=== PATIENT | male | born 1955 | race Caucasian/White ===

== ENCOUNTER 2023-08-24 08:29 | Inpatient (IN) | payer OTHER ==
[~2023-08-24] VITALS: Ht 177.8 cm; Wt 80.6 kg
[2023-08-24 09:20] VITALS: PULSE 92; RESP 13; O2SAT 92
[2023-08-24 09:28] LABS: Hemoglobin 7.6 g/dL (13.5-17.5); Mean Corpuscular Hemoglobin 42.9 pg (28.0-32.0); Mean Corpuscular Hgb Conc. 33.3 g/dL (32.0-36.0); Red Blood Cells 1.78 10^6/uL (4.5-5.90); Red Cell Distribution Width 18.7 % (11.8-14.3); White Blood Cell 10.4 10^3/uL (4.4-10.8)
[2023-08-24 09:29] LABS: Basophils % (manual) 0 (0.0-2.0); Blast Cells 0; Metamyelocytes % 0; Myelocytes % 0; Promyelocytes % 0; Reactive Lymphocytes 0
[2023-08-24 09:38] LABS: INR 1.9 (0.9-1.15); Partial Thromboplastin Time 30.7 SEC (24.5-34.5); Prothrombin Time 19.1 sec (9.3-11.8)
[2023-08-24 09:42] LABS: Albumin 2.8 g/dL (3.2-4.8); Alkaline Phosphatase 119 U/L (46-116); Anion Gap 12 (5-15); Blood Alcohol < 3.0 mg/dL (<10); Calcium 8.5 mg/dL (8.5-10.1); Carbon Dioxide 25 mmol/L (20-30); Chloride 106 mmol/L (98-107); Glucose 134 mg/dL (74-106); Potassium 3.4 mmol/L (3.5-5.1); Sodium 143 mmol/L (136-145)
[2023-08-24 10:12] LABS: Band Neutrophils % (manual) 2; Eosinophils % (manual) 1 (0-7); Lymphocytes % (manual) 9 (10.0-50.0); Monocytes % (manual) 5 (0-12)
[2023-08-24 10:13] LABS: Platelet Estimate Decreased
[2023-08-24 10:14] LABS: Alanine Aminotransferase 27 U/L (7-40); Aspartate Aminotransferase 44 U/L (13-40); BUN/Creatinine Ratio 36.6 (10.0-20.0); Blood Urea Nitrogen 49 mg/dL (9-23); Macrocytosis Marked; Total Protein 6.3 g/dL (5.7-8.2)
[2023-08-24 10:17] LABS: Lactic Acid w/Reflex 2.4 mmol/L (0.4-2.0)
[2023-08-24 10:59] LABS: Bilirubin, Total 25.7 mg/dL (0.2-1.0)
[2023-08-24] MEDS: SODIUM CHLORIDE 0.9% 1,000 ML IV ONE (11:02)
[2023-08-24] MEDS: PANTOPRAZOLE 40 MG/10 ML VIAL INJ IV ONE (11:02)
[2023-08-24] MEDS: LORazepam 2MG/ML-1ML VIAL IV ONE ×2 (11:03→13:45)
[2023-08-24 13:16] LABS: Urine Bacteria FEW /hpf (None Seen); Urine Blood 1+ /uL (Negative); Urine Clarity Turbid (Clear); Urine Color Dark-Yellow (Yellow); Urine Mucus FEW (None Seen); Urine Protein, UAD Negative (Negative); Urine Specific Gravity 1.017 (1.001-1.035); Urine Urobilinogen OVER mg/dL (Negative); Urine WBC 6 /hpf (0 - 3); Urine pH 5.5 (5.0-9.0)
[2023-08-24 13:25] LABS: Amphetamine Screen, Urine Neg (NEGATIVE); Barbiturate Scree,Urine Neg (NEGATIVE); Benzodiazephine Screen, Urine Neg (NEGATIVE); Cocaine Screen, Urine Neg (NEGATIVE); Opiate Scree,Urine Pos (NEGATIVE)
[2023-08-24 13:26] LABS: Cannabinoid Screen, Urine Pos (NEGATIVE); Phencyclidine Screen, Urine Neg (NEGATIVE)
[2023-08-24] MEDS ORDERED: DOCUSATE SOD 100 MG CAP PO PRN (15:30)
[2023-08-24] MEDS ORDERED: MORPHINE SULFATE INJ 2 MG/ml SYRG IV PRN (15:30)
[2023-08-24] MEDS ORDERED: NITROGLYCERIN 0.4 MG SL TAB SL PRN (15:30)
[2023-08-24] MEDS ORDERED: ACETAMINOPHEN 325 MG TAB PO PRN (15:30)
[2023-08-24] MEDS: SODIUM CHLORIDE 0.9% 1,000 ML IV SCH (15:30)
[2023-08-24] MEDS ORDERED: ONDANSETRON HCL 4 MG/2 ML VIAL IV PRN (15:30)
[2023-08-24] MEDS: cefTRIAXone 1GM/50ML D5W 50 ML IV ONE (16:14)
[2023-08-24] MEDS: AZITHROMYCIN 500MG/ 250ML 250 ML IV ONE (18:18)
[2023-08-24] MEDS ORDERED: LORazepam 2MG/ML-1ML VIAL IV PRN (20:00)
[2023-08-24] MEDS: LACTULOSE 20Gm/30ML SOLN PO ONE (20:35)
[2023-08-24 20:36] VITALS: BP 118/37; PULSE 95; RESP 20; TEMP 97.9; O2SAT 98
[2023-08-24] MEDS: LORazepam 2MG/ML-1ML VIAL IV PRN (20:41)
[2023-08-24] MEDS ORDERED: DEXTROSE (50%) 50ML SYRG IV PRN (21:00)
[2023-08-24] MEDS: FOLIC ACID 1 MG, MULTIPLE VITAMIN 10 ML, MAGNESIUM SULF SDV 50% 8 MEQ, THIAMINE INJ 100... INJ SCH (21:25)
[2023-08-24 22:05] VITALS: O2SAT 92
[2023-08-24] MEDS: PANTOPRAZOLE 40 MG/10 ML VIAL INJ IV SCH (23:20)
[2023-08-25] VITALS (22 sets, daily range): BP systolic 90–164; BP diastolic 42–88; PULSE 59–104; RESP 12–35; TEMP 96.3–97.7; O2SAT 92–100
[2023-08-25] MEDS: ACCU-CHEK COMFORT CURVE STRIP VI SCH (01:51)
[2023-08-25 04:07] LABS: Hematocrit 20.2 % (41.0-53.0)
[2023-08-25 04:12] LABS: Mean Corpuscular Hemoglobin 43.5 pg (28.0-32.0); Mean Corpuscular Hgb Conc. 33.7 g/dL (32.0-36.0); Mean Corpuscular Volume 129.3 fL (80.0-100.0); Red Blood Cells 1.56 10^6/uL (4.5-5.90); Red Cell Distribution Width 18.4 % (11.8-14.3)
[2023-08-25 04:15] LABS: Hemoglobin 6.8 g/dL (13.5-17.5)
[2023-08-25 04:17] LABS: Basophils % (manual) 0 (0.0-2.0); Blast Cells 0; Eosinophils % (manual) 0 (0-7); Metamyelocytes % 0; Myelocytes % 0; Promyelocytes % 0; Reactive Lymphocytes 0
[2023-08-25 04:27] LABS: Albumin 2.4 g/dL (3.2-4.8); Alkaline Phosphatase 103 U/L (46-116); Anion Gap 12 (5-15); Bilirubin, Total 23.3 mg/dL (0.2-1.0); Calcium 8.5 mg/dL (8.7-10.4); Carbon Dioxide 25 mmol/L (20-30); Chloride 108 mmol/L (98-107); Glucose 171 mg/dL (74-106); Potassium 3.3 mmol/L (3.5-5.1); Sodium 145 mmol/L (136-145)
[2023-08-25 04:30] LABS: Alanine Aminotransferase 23 U/L (7-40); Aspartate Aminotransferase 38 U/L (13-40); BUN/Creatinine Ratio 27.4 (10.0-20.0); Total Protein 6.1 g/dL (5.7-8.2)
[2023-08-25 04:31] LABS: Blood Urea Nitrogen 37 mg/dL (9-23)
[2023-08-25 07:25] LABS: Band Neutrophils % (manual) 1; Lymphocytes % (manual) 1 (10.0-50.0); Monocytes % (manual) 14 (0-12); Platelet Estimate Decreased
[2023-08-25 07:27] LABS: Macrocytosis Moderate
[2023-08-25] MEDS: ETOMIDATE (2MG/ML) 20ML VIAL IV ONE (09:25)
[2023-08-25] MEDS: ROCURONIUM 10MG/ML 10ML VIAL IV ONE (09:25)
[2023-08-25] MEDS: MIDAZOLAM DRIP 50 mg/50mL 50 ML IV SCH (09:26)
[2023-08-25] MEDS: MIDAZOLAM DRIP 50 mg/50mL 50 ML IV ONE (09:27)
[2023-08-25 09:37] LABS: Hepatitis B Surface Antigen Negative (Negative)
[2023-08-25] MEDS: PANTOPRAZOLE 80 MG in SODIUM CHL 0.9% 100 ML IV ONE (09:45)
[2023-08-25] MEDS: methylPREDNISolone SOD SUCC 40 MG/ML VL IV ONE (09:50)
[2023-08-25] MEDS: cefTRIAXone 1GM/50ML D5W 50 ML IV SCH (09:50)
[2023-08-25 09:57] LABS: Hepatitis A Ab IgM Negative
[2023-08-25 09:58] LABS: Hepatitis B Core IgM Negative
[2023-08-25 09:59] LABS: Hepatitis C Antibody Negative (Negative)
[2023-08-25] MEDS ORDERED: LACTULOSE 20Gm/30ML SOLN PO SCH (10:00)
[2023-08-25] MEDS ORDERED: predniSONE 20 MG TAB PO SCH (10:00)
[2023-08-25] MEDS: methylPREDNISolone SOD SUCC 40 MG/ML VL IV SCH (10:00)
[2023-08-25] MEDS: PANTOPRAZOLE 40mg/50ML NS AE 50 ML IV SCH (10:20)
[2023-08-25 10:21] LABS: Base Excess 2.1 mmol/L (-2.0-2.0)
[2023-08-25] MEDS: fentaNYL Drip 2500mCg/250mlNS 250 ML IV ONE (10:59)
[2023-08-25] MEDS: fentaNYL Drip 2500mCg/250mlNS 250 ML IV SCH (10:59)
[2023-08-25] MEDS: LACTULOSE 10g/15ml SOLN 473ML PR ONE (11:49)
[2023-08-25] MEDS: LACTULOSE 10g/15ml SOLN 473ML PR SCH (12:18)
[2023-08-25] MEDS: NOREPINEPHRINE 8 MG/250ML KIT 250 ML IV SCH (13:01)
[2023-08-25] MEDS: POTASSIUM CHL 20MEQ/100ML 100 ML IV SCH (13:20)
[2023-08-25] MEDS: AZITHROMYCIN 500MG/ 250ML 250 ML IV SCH (14:37)
[2023-08-25] MEDS: SODIUM CHLORIDE 0.9% 1,000 ML IV SCH (16:15)
[2023-08-25] MEDS: OCTREOTIDE ACETATE 500 MCG in SODIUM CHL 0.9% 99 ML IV SCH (16:27)
[2023-08-25] MEDS: PIPERACILLIN-TAZOB 3.375GM 100 ML IV ONE (18:41)
[2023-08-25] MEDS: PIPERACILLIN-TAZOB 3.375GM 100 ML IV SCH (22:19)
[2023-08-26] VITALS (114 sets, daily range): BP systolic 86–115; BP diastolic 36–59; PULSE 49–94; RESP 10–19; TEMP 95.6–98.8; O2SAT 92–100
[2023-08-26 00:20] LABS: Hemoglobin 8.7 g/dL (13.5-17.5)
[2023-08-26 03:54] LABS: Basophils # (auto) 0 10 ^3/uL (0-0.2); Basophils % (auto) 0.1 % (0.0-2.0); Eosinophils # (auto) 0 10 ^3/uL (0-0.8); Eosinophils % (auto) 0.1 % (0.0-7.0); Hemoglobin 7.7 g/dL (13.5-17.5); Lymphocytes # (auto) 0.5 10 ^3/uL (0.4-5.4); Neutrophils # (auto) 9.3 10 ^3/uL (1.6-8.6); Nucleated Red Blood Cells % 0.1 %; White Blood Cell 10.3 10^3/uL (4.4-10.8)
[2023-08-26 03:58] LABS: Hematocrit 23.5 % (41.0-53.0); Lymphocytes % (auto) 4.9 % (10.0-50.0); Mean Corpuscular Hemoglobin 37.3 pg (28.0-32.0); Mean Corpuscular Hgb Conc. 32.8 g/dL (32.0-36.0); Mean Corpuscular Volume 113.6 fL (80.0-100.0); Monocytes # (auto) 0.6 10 ^3/uL (0-1.3); Monocytes % (auto) 5.4 % (0.0-12.0); Neutrophils % (auto) 89.5 % (37.0-80.0); Red Blood Cells 2.07 10^6/uL (4.5-5.90)
[2023-08-26 04:06] LABS: Red Cell Distribution Width 28.9 % (11.8-14.3)
[2023-08-26 04:14] LABS: Albumin 2.2 g/dL (3.2-4.8)
[2023-08-26 04:15] LABS: Bilirubin, Total 20.8 mg/dL (0.2-1.0)
[2023-08-26 04:28] LABS: % Iron Saturation 32.1 % (20-55)
[2023-08-26 04:29] LABS: Alanine Aminotransferase 21 U/L (7-40); Alkaline Phosphatase 97 U/L (46-116); Anion Gap 7 (5-15); Aspartate Aminotransferase 31 U/L (13-40); BUN/Creatinine Ratio 28.3 (10.0-20.0); Blood Urea Nitrogen 39 mg/dL (9-23); Carbon Dioxide 25 mmol/L (20-30); Chloride 110 mmol/L (98-107); Glucose 240 mg/dL (74-106); Magnesium 2.6 mg/dL (1.6-2.6); Potassium 3.7 mmol/L (3.5-5.1); Sodium 142 mmol/L (136-145); Total Protein 5.6 g/dL (5.7-8.2)
[2023-08-26 04:44] LABS: HDL Cholesterol 6 mg/dL (40-59)
[2023-08-26 04:52] LABS: CRP High Sensitivity 3.36 mg/dL (<1.0); Cholesterol 105 mg/dL (< 200); LDL Cholesterol 33 mg/dL (< 100); Triglycerides 75 mg/dL (< 150)
[2023-08-26] MEDS: InsuLIN REG 1unit/0.01ml Soln (100units/ml) SC SCH (05:38)
[2023-08-26 05:48] LABS: Anisocytosis Moderate; Macrocytosis Marked; Platelet Estimate Decreased
[2023-08-26 05:49] LABS: Large Platelets FEW; Polychromasia Slight
[2023-08-26 07:24] LABS: Base Excess 0.4 mmol/L (-2.0-2.0)
[2023-08-26] MEDS: phytonadione 5 MG in SODIUM CHL 0.9% 50 ML IV ONE (13:00)
[2023-08-26] MEDS ORDERED: MEROPENEM 1GM IVPB 50 ML IV ONE ×2 (13:00→14:00)
[2023-08-26] MEDS ORDERED: VANCOMYCIN PER PHARMACY 0 MG IV SCH (13:00)
[2023-08-26] MEDS: MEROPENEM 1GM IVPB 50 ML IV SCH (14:00)
[2023-08-26 15:13] LABS: INR 2.31 (0.9-1.15); Partial Thromboplastin Time 37.5 SEC (24.5-34.5)
[2023-08-26 15:24] LABS: Basophils # (auto) 0 10 ^3/uL (0-0.2); Basophils % (auto) 0.1 % (0.0-2.0); Eosinophils # (auto) 0 10 ^3/uL (0-0.8); Hematocrit 27.4 % (41.0-53.0); Hemoglobin 9.2 g/dL (13.5-17.5); Lymphocytes # (auto) 0.8 10 ^3/uL (0.4-5.4); Lymphocytes % (auto) 6.2 % (10.0-50.0); Mean Corpuscular Hemoglobin 36.8 pg (28.0-32.0); Mean Corpuscular Hgb Conc. 33.4 g/dL (32.0-36.0); Monocytes # (auto) 1.3 10 ^3/uL (0-1.3); Monocytes % (auto) 9.4 % (0.0-12.0); Neutrophils # (auto) 11.4 10 ^3/uL (1.6-8.6); Neutrophils % (auto) 84.3 % (37.0-80.0); Nucleated Red Blood Cells % 0.2 %; Red Blood Cells 2.49 10^6/uL (4.5-5.90); White Blood Cell 13.5 10^3/uL (4.4-10.8)
[2023-08-26 15:36] LABS: Red Cell Distribution Width 28.2 % (11.8-14.3)
[2023-08-26 16:47] LABS: Anisocytosis Moderate; Platelet Estimate Decreased
[2023-08-26 16:48] LABS: Macrocytosis Moderate
[2023-08-26] MEDS: LACTULOSE 20Gm/30ML SOLN PO SCH (18:01)
[2023-08-26] MEDS: rifAXIMin 550 MG TAB NG SCH (21:03)
[2023-08-27] VITALS (108 sets, daily range): BP systolic 100–139; BP diastolic 43–60; PULSE 49–72; RESP 16–18; TEMP 97–98.4; O2SAT 94–100
[2023-08-27 03:31] LABS: Sodium Urine < 10 mmol/L (40-220)
[2023-08-27 03:39] LABS: Creatinine, Urine 98.49 mg/dL (30.0-125.0)
[2023-08-27 04:12] LABS: Basophils # (auto) 0 10 ^3/uL (0-0.2); Basophils % (auto) 0.1 % (0.0-2.0); Eosinophils # (auto) 0 10 ^3/uL (0-0.8); Eosinophils % (auto) 0.1 % (0.0-7.0); Hemoglobin 8.7 g/dL (13.5-17.5); Lymphocytes # (auto) 1.2 10 ^3/uL (0.4-5.4); Lymphocytes % (auto) 7.6 % (10.0-50.0)
[2023-08-27 04:17] LABS: Hematocrit 25.7 % (41.0-53.0); Mean Corpuscular Hemoglobin 37.9 pg (28.0-32.0); Mean Corpuscular Hgb Conc. 33.9 g/dL (32.0-36.0); Mean Corpuscular Volume 111.7 fL (80.0-100.0); Monocytes # (auto) 1.8 10 ^3/uL (0-1.3); Monocytes % (auto) 11.4 % (0.0-12.0); Neutrophils # (auto) 12.9 10 ^3/uL (1.6-8.6); Neutrophils % (auto) 80.8 % (37.0-80.0); Nucleated Red Blood Cells % 0.1 %
[2023-08-27 04:27] LABS: Alanine Aminotransferase 24 U/L (7-40); Albumin 2.2 g/dL (3.2-4.8); Alkaline Phosphatase 104 U/L (46-116); Anion Gap 7 (5-15); Aspartate Aminotransferase 40 U/L (13-40); Bilirubin, Total 19.2 mg/dL (0.2-1.0); Calcium 7.8 mg/dL (8.7-10.4); Carbon Dioxide 25 mmol/L (20-30); Chloride 112 mmol/L (98-107); Glucose 202 mg/dL (74-106); Magnesium 2.7 mg/dL (1.6-2.6); Phosphorus 3.7 mg/dL (2.4-5.1); Potassium 3.5 mmol/L (3.5-5.1); Sodium 144 mmol/L (136-145); Total Protein 5.6 g/dL (5.7-8.2)
[2023-08-27 04:43] LABS: Red Cell Distribution Width 29.1 % (11.8-14.3)
[2023-08-27 04:54] LABS: BUN/Creatinine Ratio 22.6 (10.0-20.0); Blood Urea Nitrogen 37 mg/dL (9-23)
[2023-08-27 05:14] LABS: CRP High Sensitivity 2.52 mg/dL (<1.0)
[2023-08-27 05:55] LABS: Anisocytosis Marked; Platelet Estimate Decreased
[2023-08-27 05:56] LABS: Macrocytosis Marked
[2023-08-27 07:12] LABS: Base Excess -3.1 mmol/L (-2.0-2.0)
[2023-08-27] MEDS: VANCOMYCIN 1GM/200ML 200 ML IV SCH (11:05)
[2023-08-27] MEDS: MIDODRINE HCL 10 MG TAB PO SCH (12:00)
[2023-08-27] MEDS: MIDODRINE HCL 10 MG TAB PO ONE (13:42)
[2023-08-27] MEDS ORDERED: EPINEPHrine HCL 1 MG/10 ML SYRG ONE (15:47)
[2023-08-27] MEDS: DOPamine 1600MCG/ML D5W 250 ML IV SCH (20:34)
[2023-08-27 20:44] LABS: Magnesium 2.6 mg/dL (1.6-2.6)
[2023-08-27] MEDS: ALBUMIN 25% 100 ML IV SCH (20:51)
[2023-08-27] MEDS: POTASSIUM CHL 20MEQ/100ML 100 ML IV SCH (21:01)
[2023-08-27] MEDS: PANTOPRAZOLE 40 MG/10 ML VIAL INJ IV SCH (21:59)
[2023-08-27] MEDS: OCTREOTIDE ACETATE 100 MCG/ML VL SUBCUT SCH (22:10)
[2023-08-28] VITALS (110 sets, daily range): BP systolic 99–141; BP diastolic 45–79; PULSE 53–67; RESP 10–20; TEMP 97.8–99.1; O2SAT 92–100
[2023-08-28 04:16] LABS: Basophils # (auto) 0 10 ^3/uL (0-0.2); Eosinophils # (auto) 0.2 10 ^3/uL (0-0.8); Monocytes # (auto) 1.2 10 ^3/uL (0-1.3); White Blood Cell 10.7 10^3/uL (4.4-10.8)
[2023-08-28 04:17] LABS: Alanine Aminotransferase 22 U/L (7-40); Albumin 2.3 g/dL (3.2-4.8); Alkaline Phosphatase 97 U/L (46-116); Anion Gap 6 (5-15); Aspartate Aminotransferase 30 U/L (13-40); Bilirubin, Total 18.5 mg/dL (0.2-1.0); Blood Urea Nitrogen 30 mg/dL (9-23); Calcium 7.9 mg/dL (8.7-10.4); Carbon Dioxide 25 mmol/L (20-30); Chloride 115 mmol/L (98-107); Eosinophils % (auto) 2.1 % (0.0-7.0); Glucose 148 mg/dL (74-106); Hematocrit 25.5 % (41.0-53.0); Hemoglobin 8.5 g/dL (13.5-17.5); Lymphocytes # (auto) 1.3 10 ^3/uL (0.4-5.4); Lymphocytes % (auto) 11.7 % (10.0-50.0); Magnesium 2.7 mg/dL (1.6-2.6); Mean Corpuscular Hemoglobin 37.1 pg (28.0-32.0); Mean Corpuscular Hgb Conc. 33.1 g/dL (32.0-36.0); Mean Corpuscular Volume 112.1 fL (80.0-100.0); Monocytes % (auto) 11.4 % (0.0-12.0); Neutrophils % (auto) 74.8 % (37.0-80.0); Nucleated Red Blood Cells % 0.2 %; Potassium 3.4 mmol/L (3.5-5.1); Red Blood Cells 2.28 10^6/uL (4.5-5.90); Sodium 146 mmol/L (136-145); Total Protein 5.5 g/dL (5.7-8.2)
[2023-08-28 04:19] LABS: Red Cell Distribution Width 28.7 % (11.8-14.3)
[2023-08-28 04:21] LABS: BUN/Creatinine Ratio 21.4 (10.0-20.0)
[2023-08-28 05:08] LABS: Anisocytosis Moderate; Macrocytosis Marked; Platelet Estimate Decreased
[2023-08-28 05:10] LABS: Large Platelets FEW
[2023-08-28 08:03] LABS: Base Excess -0.4 mmol/L (-2.0-2.0)
[2023-08-28] MEDS ORDERED: TPN PER PHARMACY 0 ML IV SCH (08:45)
[2023-08-28] MEDS: POTASSIUM CHL 20MEQ/100ML 100 ML IV SCH (09:25)
[2023-08-28] MEDS: AMPICILLIN & SULBACTAM SODIUM 3 GM in SODIUM CHL 0.9% 100 ML IV SCH (13:06)
[2023-08-28 14:46] LABS: INR 2.11 (0.9-1.15); Prothrombin Time 21.1 sec (9.3-11.8)
[2023-08-28] MEDS: Nepro With Carb Steady 1 Liter Bottle GT SCH (18:00)
[2023-08-28] MEDS: BUMETANIDE 2.5mg/10ml (0.25 mg/ml) INJ IV ONE (18:43)
[2023-08-28] MEDS ORDERED: TPN PER PHARMACY IV NR (20:00)
[2023-08-28] MEDS: ACCU-CHEK COMFORT CURVE STRIP VI SCH (23:45)
[2023-08-28] MEDS: InsuLIN REG 1unit/0.01ml Soln (100units/ml) SC SCH (23:47)
[2023-08-29] VITALS (103 sets, daily range): BP systolic 90–120; BP diastolic 41–64; PULSE 50–73; RESP 13–16; TEMP 97.6–98.3; O2SAT 94–100
[2023-08-29] MEDS ORDERED: DEXTROSE (50%) 50ML SYRG IV SCH
[2023-08-29 04:22] LABS: Basophils # (auto) 0 10 ^3/uL (0-0.2); Eosinophils # (auto) 0.5 10 ^3/uL (0-0.8); Hemoglobin 8.5 g/dL (13.5-17.5)
[2023-08-29 04:26] LABS: Basophils % (auto) 0.4 % (0.0-2.0); Hematocrit 25.8 % (41.0-53.0); Lymphocytes % (auto) 10.5 % (10.0-50.0); Mean Corpuscular Hemoglobin 37.1 pg (28.0-32.0); Mean Corpuscular Hgb Conc. 32.8 g/dL (32.0-36.0); Mean Corpuscular Volume 112.9 fL (80.0-100.0); Monocytes % (auto) 10.3 % (0.0-12.0); Neutrophils # (auto) 7.2 10 ^3/uL (1.6-8.6); Neutrophils % (auto) 73.8 % (37.0-80.0); Nucleated Red Blood Cells % 0.1 %; Red Blood Cells 2.29 10^6/uL (4.5-5.90); White Blood Cell 9.7 10^3/uL (4.4-10.8)
[2023-08-29 04:30] LABS: Red Cell Distribution Width 27.2 % (11.8-14.3)
[2023-08-29 04:39] LABS: Alanine Aminotransferase 18 U/L (7-40); Albumin 2.5 g/dL (3.2-4.8); Alkaline Phosphatase 86 U/L (46-116); Anion Gap 6 (5-15); Aspartate Aminotransferase 25 U/L (13-40); Blood Urea Nitrogen 27 mg/dL (9-23); Calcium 8.2 mg/dL (8.7-10.4); Carbon Dioxide 26 mmol/L (20-30); Chloride 117 mmol/L (98-107); Glucose 113 mg/dL (74-106); Potassium 3.3 mmol/L (3.5-5.1); Sodium 149 mmol/L (136-145)
[2023-08-29 04:40] LABS: Total Protein 5.2 g/dL (5.7-8.2)
[2023-08-29 04:53] LABS: BUN/Creatinine Ratio 24.1 (10.0-20.0)
[2023-08-29 05:46] LABS: Anisocytosis Slight; Macrocytosis Marked; Platelet Estimate Decreased
[2023-08-29] MEDS ORDERED: BUMETANIDE 2.5mg/10ml (0.25 mg/ml) INJ IV SCH (06:00)
[2023-08-29] MEDS: BUMETANIDE 2.5mg/10ml (0.25 mg/ml) INJ IV SCH (06:15)
[2023-08-29 06:47] LABS: Base Excess 0.7 mmol/L (-2.0-2.0)
[2023-08-29] MEDS: POTASSIUM CHL 20MEQ/100ML 100 ML IV SCH (07:00)
[2023-08-29] MEDS: BUMETANIDE 2.5mg/10ml (0.25 mg/ml) INJ IV ONE ×2 (09:11→16:11)
[2023-08-29] MEDS: FREE WATER GT SCH (11:47)
[2023-08-29] MEDS: LIDOCAINE 1% (LOCAL ANESTH.) PF 5ml SDV ID ONE (12:15)
[2023-08-29] MEDS: METOCLOPRAMIDE HCL 5MG/ml INJ 2ml VIAL IV SCH (16:11)
[2023-08-29] MEDS: ceFAZolin 1GM/50ML 50 ML IV SCH (18:01)
[2023-08-29] MEDS: SODIUM CHLOR 0.9% PF (SALINE LOCK) 10ML VIAL/SYR IV SCH (22:28)
[2023-08-30] VITALS (106 sets, daily range): BP systolic 88–128; BP diastolic 39–60; PULSE 55–81; RESP 16–17; TEMP 97.9–98.6; O2SAT 91–100
[2023-08-30 04:17] LABS: Alanine Aminotransferase 16 U/L (7-40); Alkaline Phosphatase 93 U/L (46-116); Anion Gap 8 (5-15); Blood Urea Nitrogen 25 mg/dL (9-23); Calcium 8.4 mg/dL (8.7-10.4); Carbon Dioxide 28 mmol/L (20-30); Chloride 116 mmol/L (98-107); Glucose 143 mg/dL (74-106); Magnesium 1.7 mg/dL (1.6-2.6); Potassium 3.3 mmol/L (3.5-5.1); Sodium 152 mmol/L (136-145)
[2023-08-30 04:18] LABS: Albumin 2.4 g/dL (3.2-4.8); Aspartate Aminotransferase 26 U/L (13-40); Bilirubin, Total 18.8 mg/dL (0.2-1.0); Total Protein 5.3 g/dL (5.7-8.2)
[2023-08-30 04:22] LABS: Basophils # (auto) 0 10 ^3/uL (0-0.2); Eosinophils # (auto) 0.5 10 ^3/uL (0-0.8); Eosinophils % (auto) 4.5 % (0.0-7.0); Hemoglobin 8.9 g/dL (13.5-17.5); Lymphocytes # (auto) 0.9 10 ^3/uL (0.4-5.4); Mean Corpuscular Volume 111.4 fL (80.0-100.0); Nucleated Red Blood Cells % 0.1 %
[2023-08-30 04:23] LABS: BUN/Creatinine Ratio 23.4 (10.0-20.0); Basophils % (auto) 0.4 % (0.0-2.0); Lymphocytes % (auto) 8.7 % (10.0-50.0); Mean Corpuscular Hemoglobin 38.3 pg (28.0-32.0); Mean Corpuscular Hgb Conc. 34.4 g/dL (32.0-36.0); Monocytes # (auto) 1.1 10 ^3/uL (0-1.3); Monocytes % (auto) 10.5 % (0.0-12.0); Neutrophils # (auto) 8.1 10 ^3/uL (1.6-8.6); Neutrophils % (auto) 75.9 % (37.0-80.0); Red Blood Cells 2.33 10^6/uL (4.5-5.90); White Blood Cell 10.6 10^3/uL (4.4-10.8)
[2023-08-30 04:26] LABS: Red Cell Distribution Width 27.2 % (11.8-14.3)
[2023-08-30 04:58] LABS: Anisocytosis Slight; Macrocytosis Slight; Platelet Estimate Decreased
[2023-08-30] MEDS: MAGNESIUM SULFATE 1GM/100ML 100 ML IV ONE (06:38)
[2023-08-30] MEDS: POTASSIUM CHL 20MEQ/100ML 100 ML IV ONE (06:39)
[2023-08-30 07:19] LABS: Base Excess 3.2 mmol/L (-2.0-2.0)
[2023-08-30] MEDS: MAGNESIUM SULFATE 1GM/100ML 100 ML IV SCH (11:00)
[2023-08-30] MEDS: BUMETANIDE 2.5mg/10ml (0.25 mg/ml) INJ IV SCH (11:58)
[2023-08-30] MEDS: FREE WATER GT SCH (11:59)
[2023-08-30] MEDS: POTASSIUM CHL 20MEQ/100ML 100 ML IV SCH (13:27)
[2023-08-30] MEDS: methylPREDNISolone SOD SUCC 40 MG/ML VL IV SCH (22:58)
[2023-08-31] VITALS (107 sets, daily range): BP systolic 102–136; BP diastolic 48–92; PULSE 51–106; RESP 9–20; TEMP 97.9–98.7; O2SAT 91–100
[2023-08-31 03:39] LABS: Basophils # (auto) 0.1 10 ^3/uL (0-0.2); Eosinophils # (auto) 0.5 10 ^3/uL (0-0.8); Hematocrit 27.6 % (41.0-53.0); Hemoglobin 9.3 g/dL (13.5-17.5); Lymphocytes # (auto) 0.5 10 ^3/uL (0.4-5.4); Monocytes # (auto) 0.7 10 ^3/uL (0-1.3); Red Blood Cells 2.49 10^6/uL (4.5-5.90)
[2023-08-31 03:42] LABS: Basophils % (auto) 0.4 % (0.0-2.0); Eosinophils % (auto) 3.8 % (0.0-7.0); Lymphocytes % (auto) 3.7 % (10.0-50.0); Mean Corpuscular Hemoglobin 37.6 pg (28.0-32.0); Mean Corpuscular Hgb Conc. 33.9 g/dL (32.0-36.0); Monocytes % (auto) 5.3 % (0.0-12.0); Neutrophils # (auto) 10.9 10 ^3/uL (1.6-8.6); Neutrophils % (auto) 86.8 % (37.0-80.0); Nucleated Red Blood Cells % 0.1 %; White Blood Cell 12.5 10^3/uL (4.4-10.8)
[2023-08-31 03:46] LABS: Red Cell Distribution Width 26.6 % (11.8-14.3)
[2023-08-31 03:50] LABS: Chloride 113 mmol/L (98-107); Potassium 3.6 mmol/L (3.5-5.1); Sodium 151 mmol/L (136-145)
[2023-08-31 03:51] LABS: Anion Gap 8 (5-15); Carbon Dioxide 30 mmol/L (20-30)
[2023-08-31 03:52] LABS: Calcium 8.5 mg/dL (8.7-10.4)
[2023-08-31 03:56] LABS: Blood Urea Nitrogen 26 mg/dL (9-23); Glucose 157 mg/dL (74-106)
[2023-08-31 04:15] LABS: BUN/Creatinine Ratio 26.5 (10.0-20.0)
[2023-08-31 04:44] LABS: Anisocytosis Slight; Macrocytosis Moderate; Platelet Estimate Decreased
[2023-08-31 04:45] LABS: Ovalocytes FEW; Stomatocytes Few
[2023-08-31 07:23] LABS: Base Excess 6.5 mmol/L (-2.0-2.0)
[2023-08-31] MEDS: D5W 5% 1,000 ML IV SCH (13:16)
[2023-08-31] MEDS: POTASSIUM EFFERVESENT TAB 25 MEQ GT ONE (13:17)
[2023-08-31] MEDS: DexmedeTOMIDine 200 MCG in D5W 5% 48 ML IV SCH (15:00)
[2023-09-01] VITALS (105 sets, daily range): BP systolic 103–150; BP diastolic 44–111; PULSE 42–109; RESP 12–24; TEMP 97.6–98.1; O2SAT 94–100
[2023-09-01 04:03] LABS: Basophils # (auto) 0 10 ^3/uL (0-0.2); Eosinophils # (auto) 0 10 ^3/uL (0-0.8); Monocytes # (auto) 0.8 10 ^3/uL (0-1.3)
[2023-09-01 04:04] LABS: Chloride 110 mmol/L (98-107); Potassium 3.4 mmol/L (3.5-5.1); Sodium 149 mmol/L (136-145)
[2023-09-01 04:05] LABS: Basophils % (auto) 0.1 % (0.0-2.0); Eosinophils % (auto) 0.1 % (0.0-7.0); Hematocrit 25.5 % (41.0-53.0); Hemoglobin 8.7 g/dL (13.5-17.5); Lymphocytes # (auto) 0.7 10 ^3/uL (0.4-5.4); Lymphocytes % (auto) 6.1 % (10.0-50.0); Mean Corpuscular Hemoglobin 37.9 pg (28.0-32.0); Mean Corpuscular Hgb Conc. 33.9 g/dL (32.0-36.0); Mean Corpuscular Volume 111.6 fL (80.0-100.0); Monocytes % (auto) 7.1 % (0.0-12.0); Neutrophils # (auto) 9.9 10 ^3/uL (1.6-8.6); Neutrophils % (auto) 86.6 % (37.0-80.0); Red Blood Cells 2.29 10^6/uL (4.5-5.90); White Blood Cell 11.5 10^3/uL (4.4-10.8)
[2023-09-01 04:06] LABS: Anion Gap 6 (5-15); Calcium 8.7 mg/dL (8.7-10.4); Carbon Dioxide 33 mmol/L (20-30)
[2023-09-01 04:08] LABS: Red Cell Distribution Width 25.7 % (11.8-14.3)
[2023-09-01 04:11] LABS: Blood Urea Nitrogen 30 mg/dL (9-23); Glucose 171 mg/dL (74-106)
[2023-09-01 04:17] LABS: BUN/Creatinine Ratio 27.8 (10.0-20.0)
[2023-09-01 05:34] LABS: Anisocytosis Moderate; Macrocytosis Marked; Platelet Estimate Decreased
[2023-09-01 08:16] LABS: Base Excess 6.4 mmol/L (-2.0-2.0)
[2023-09-01] MEDS: POTASSIUM CHL 20MEQ/100ML 100 ML IV SCH (09:06)
[2023-09-01] MEDS: acetaZOLAMIDE SODIUM 500 MG VL IV ONE (09:16)
[2023-09-01] MEDS: LACTULOSE 20Gm/30ML SOLN PO SCH (09:54)
[2023-09-01] MEDS: SPIRONOLACTONE 25 MG TAB PO SCH (18:06)
[2023-09-01] MEDS ORDERED: acetaZOLAMIDE 250 MG TAB NG SCH (22:00)
[2023-09-02] VITALS (82 sets, daily range): BP systolic 89–151; BP diastolic 39–88; PULSE 46–125; RESP 9–22; TEMP 96.7–97.9; O2SAT 87–100
[2023-09-02 04:01] LABS: Basophils # (auto) 0 10 ^3/uL (0-0.2); Eosinophils # (auto) 0 10 ^3/uL (0-0.8); Hemoglobin 8.4 g/dL (13.5-17.5)
[2023-09-02 04:03] LABS: Basophils % (auto) 0.1 % (0.0-2.0); Hematocrit 25.1 % (41.0-53.0); Lymphocytes # (auto) 0.7 10 ^3/uL (0.4-5.4); Lymphocytes % (auto) 4.5 % (10.0-50.0); Mean Corpuscular Hemoglobin 37.9 pg (28.0-32.0); Mean Corpuscular Hgb Conc. 33.6 g/dL (32.0-36.0); Monocytes % (auto) 6.3 % (0.0-12.0); Neutrophils # (auto) 14.2 10 ^3/uL (1.6-8.6); Neutrophils % (auto) 89.1 % (37.0-80.0); Red Blood Cells 2.22 10^6/uL (4.5-5.90); White Blood Cell 15.9 10^3/uL (4.4-10.8)
[2023-09-02 04:42] LABS: Alanine Aminotransferase 19 U/L (7-40); Albumin 2.4 g/dL (3.2-4.8); Alkaline Phosphatase 102 U/L (46-116); Anion Gap 4 (5-15); Aspartate Aminotransferase 43 U/L (13-40); Blood Urea Nitrogen 33 mg/dL (9-23); Calcium 8.7 mg/dL (8.7-10.4); Carbon Dioxide 34 mmol/L (20-30); Chloride 109 mmol/L (98-107); Glucose 163 mg/dL (74-106); Magnesium 1.6 mg/dL (1.6-2.6); Potassium 3.3 mmol/L (3.5-5.1); Sodium 147 mmol/L (136-145)
[2023-09-02 04:43] LABS: Total Protein 5.5 g/dL (5.7-8.2)
[2023-09-02 05:08] LABS: BUN/Creatinine Ratio 28.2 (10.0-20.0)
[2023-09-02 05:35] LABS: CRP High Sensitivity 1.19 mg/dL (<1.0)
[2023-09-02] MEDS: ceFAZolin 1GM/50ML 50 ML IV ONE (05:36)
[2023-09-02] MEDS: POTASSIUM CHL 20MEQ/100ML 100 ML IV SCH (06:41)
[2023-09-02] MEDS: POTASSIUM EFFERVESENT TAB 25 MEQ GT ONE (06:41)
[2023-09-02 06:45] LABS: Anisocytosis Moderate; Macrocytosis Marked; Platelet Estimate Decreased
[2023-09-02 07:46] LABS: Base Excess 4.4 mmol/L (-2.0-2.0)
[2023-09-02] MEDS: MAGNESIUM SULFATE 1GM/100ML 100 ML IV SCH (08:00)
[2023-09-02] MEDS: acetaZOLAMIDE 250 MG TAB NG SCH (08:15)
[2023-09-02] MEDS: LACTULOSE 20Gm/30ML SOLN PO SCH (10:27)
[2023-09-02] MEDS: NALOXONE HCL 1MG/ML 2ML SYRINGE ONE ×2 (18:00→18:03)
[2023-09-02] MEDS: ETOMIDATE (2MG/ML) 20ML VIAL IV ONE (18:50)
[2023-09-02] MEDS: ROCURONIUM 10MG/ML 10ML VIAL IV ONE (18:50)
[2023-09-02 22:03] LABS: Base Excess 3.6 mmol/L (-2.0-2.0)
[2023-09-03] VITALS (102 sets, daily range): BP systolic 84–145; BP diastolic 37–70; PULSE 45–77; RESP 14–17; TEMP 97.5–97.9; O2SAT 90–100
[2023-09-03 04:10] LABS: Basophils # (auto) 0 10 ^3/uL (0-0.2); Eosinophils # (auto) 0 10 ^3/uL (0-0.8); Hematocrit 23.2 % (41.0-53.0); Hemoglobin 7.9 g/dL (13.5-17.5); Lymphocytes % (auto) 9.1 % (10.0-50.0); Mean Corpuscular Hgb Conc. 34.1 g/dL (32.0-36.0); Mean Corpuscular Volume 111.7 fL (80.0-100.0); Monocytes # (auto) 0.9 10 ^3/uL (0-1.3); Monocytes % (auto) 8.3 % (0.0-12.0); Neutrophils # (auto) 9.4 10 ^3/uL (1.6-8.6); Neutrophils % (auto) 82.6 % (37.0-80.0); Red Blood Cells 2.07 10^6/uL (4.5-5.90); White Blood Cell 11.3 10^3/uL (4.4-10.8)
[2023-09-03 04:40] LABS: Alanine Aminotransferase 20 U/L (7-40); Albumin 2.2 g/dL (3.2-4.8); Alkaline Phosphatase 102 U/L (46-116); Anion Gap 7 (5-15); Aspartate Aminotransferase 46 U/L (13-40); Blood Urea Nitrogen 34 mg/dL (9-23); Calcium 8.6 mg/dL (8.7-10.4); Carbon Dioxide 30 mmol/L (20-30); Chloride 110 mmol/L (98-107); Glucose 161 mg/dL (74-106); Potassium 2.9 mmol/L (3.5-5.1); Sodium 147 mmol/L (136-145)
[2023-09-03 04:41] LABS: Bilirubin, Total 14.6 mg/dL (0.2-1.0); Total Protein 5.1 g/dL (5.7-8.2)
[2023-09-03 04:44] LABS: BUN/Creatinine Ratio 32.7 (10.0-20.0)
[2023-09-03 05:12] LABS: Anisocytosis Slight; Platelet Estimate Decreased
[2023-09-03 05:13] LABS: Macrocytosis Marked
[2023-09-03] MEDS: POTASSIUM CHL 20MEQ/100ML 100 ML IV SCH ×2 (05:50→10:49)
[2023-09-03 07:34] LABS: Base Excess 4.8 mmol/L (-2.0-2.0)
[2023-09-03] MEDS: rifAXIMin 550 MG TAB PO SCH (10:30)
[2023-09-03] MEDS: METOCLOPRAMIDE HCL 5MG/ml INJ 2ml VIAL IV ONE (11:04)
[2023-09-03] MEDS ORDERED: DOPamine 1600MCG/ML D5W 250 ML IV SCH (13:55)
[2023-09-03] MEDS: METOCLOPRAMIDE HCL 5MG/ml INJ 2ml VIAL IV SCH (15:22)
[2023-09-03] MEDS ORDERED: POTASSIUM CHL 20MEQ/100ML 100 ML IV SCH (15:30)
[2023-09-03] MEDS: fentaNYL Drip 2500mCg/250mlNS 250 ML IV SCH (16:45)
[2023-09-03] MEDS: MIDAZOLAM DRIP 50 mg/50mL 50 ML IV SCH (16:45)
[2023-09-03] MEDS: NOREPINEPHRINE 8 MG/250ML KIT 250 ML IV SCH (16:45)
[2023-09-03] MEDS: DOPamine 1600MCG/ML D5W 250 ML IV SCH ×2 (18:30→21:32)
[2023-09-03] MEDS: URSODIOL 300 MG CAP PO SCH (21:56)
[2023-09-04] VITALS (110 sets, daily range): BP systolic 75–144; BP diastolic 24–75; PULSE 49–89; RESP 12–17; TEMP 97.5–97.9; O2SAT 90–100
[2023-09-04 04:02] LABS: Basophils # (auto) 0 10 ^3/uL (0-0.2); Basophils % (auto) 0.3 % (0.0-2.0); Eosinophils # (auto) 0.2 10 ^3/uL (0-0.8); Hemoglobin 8.8 g/dL (13.5-17.5); Lymphocytes # (auto) 1.2 10 ^3/uL (0.4-5.4); White Blood Cell 8.2 10^3/uL (4.4-10.8)
[2023-09-04 04:06] LABS: Eosinophils % (auto) 1.9 % (0.0-7.0); Hematocrit 25.2 % (41.0-53.0); Lymphocytes % (auto) 14.6 % (10.0-50.0); Mean Corpuscular Hemoglobin 39.3 pg (28.0-32.0); Mean Corpuscular Hgb Conc. 35.1 g/dL (32.0-36.0); Mean Corpuscular Volume 111.8 fL (80.0-100.0); Monocytes # (auto) 0.6 10 ^3/uL (0-1.3); Monocytes % (auto) 7.5 % (0.0-12.0); Neutrophils # (auto) 6.2 10 ^3/uL (1.6-8.6); Neutrophils % (auto) 75.7 % (37.0-80.0); Nucleated Red Blood Cells % 0.2 %; Red Blood Cells 2.25 10^6/uL (4.5-5.90)
[2023-09-04 04:16] LABS: Alanine Aminotransferase 19 U/L (7-40); Albumin 2.3 g/dL (3.2-4.8); Alkaline Phosphatase 105 U/L (46-116); Calcium 8.9 mg/dL (8.7-10.4); Carbon Dioxide 30 mmol/L (20-30); Chloride 113 mmol/L (98-107); Glucose 137 mg/dL (74-106)
[2023-09-04 04:17] LABS: Anion Gap 6 (5-15); Aspartate Aminotransferase 38 U/L (13-40); Bilirubin, Total 17.9 mg/dL (0.2-1.0); Blood Urea Nitrogen 31 mg/dL (9-23); Sodium 149 mmol/L (136-145); Total Protein 5.6 g/dL (5.7-8.2)
[2023-09-04 04:34] LABS: BUN/Creatinine Ratio 28.2 (10.0-20.0)
[2023-09-04 04:37] LABS: Red Cell Distribution Width 24.2 % (11.8-14.3)
[2023-09-04] MEDS: POTASSIUM CHL 20MEQ/100ML 100 ML IV SCH (07:07)
[2023-09-04 09:46] LABS: Base Excess 6.4 mmol/L (-2.0-2.0)
[2023-09-04] MEDS: methylPREDNISolone SOD SUCC 40 MG/ML VL IV SCH (09:56)
[2023-09-04] MEDS: POTASSIUM CHL 20MEQ/100ML 100 ML IV ONE (09:57)
[2023-09-04] MEDS: METOCLOPRAMIDE HCL 5MG/ml INJ 2ml VIAL IV SCH (15:06)
[2023-09-05] VITALS (105 sets, daily range): BP systolic 60–189; BP diastolic 31–87; PULSE 45–88; RESP 9–17; TEMP 97.7–97.9; O2SAT 93–100
[2023-09-05 04:43] LABS: Alanine Aminotransferase 14 U/L (7-40); Albumin 2.4 g/dL (3.2-4.8); Alkaline Phosphatase 111 U/L (46-116); Anion Gap 7 (5-15); Aspartate Aminotransferase 34 U/L (13-40); Blood Urea Nitrogen 31 mg/dL (9-23); Calcium 9.1 mg/dL (8.7-10.4); Carbon Dioxide 28 mmol/L (20-30); Chloride 112 mmol/L (98-107); Glucose 177 mg/dL (74-106); Potassium 4.2 mmol/L (3.5-5.1); Sodium 147 mmol/L (136-145)
[2023-09-05 04:44] LABS: Bilirubin, Total 18.5 mg/dL (0.2-1.0); Total Protein 5.8 g/dL (5.7-8.2)
[2023-09-05 04:51] LABS: BUN/Creatinine Ratio 25.4 (10.0-20.0)
[2023-09-05 05:00] LABS: Basophils # (auto) 0 10 ^3/uL (0-0.2); Basophils % (auto) 0.1 % (0.0-2.0); Eosinophils # (auto) 0 10 ^3/uL (0-0.8); Lymphocytes # (auto) 0.6 10 ^3/uL (0.4-5.4); Lymphocytes % (auto) 7.8 % (10.0-50.0); Monocytes # (auto) 0.2 10 ^3/uL (0-1.3); Monocytes % (auto) 2.5 % (0.0-12.0); Neutrophils % (auto) 89.6 % (37.0-80.0); Nucleated Red Blood Cells % 0.1 %; Red Blood Cells 2.27 10^6/uL (4.5-5.90)
[2023-09-05 05:01] LABS: Hematocrit 25.7 % (41.0-53.0); Mean Corpuscular Hemoglobin 39.5 pg (28.0-32.0); Mean Corpuscular Hgb Conc. 34.8 g/dL (32.0-36.0); Mean Corpuscular Volume 113.4 fL (80.0-100.0); Neutrophils # (auto) 6.9 10 ^3/uL (1.6-8.6); White Blood Cell 7.7 10^3/uL (4.4-10.8)
[2023-09-05 05:06] LABS: Red Cell Distribution Width 23.1 % (11.8-14.3)
[2023-09-05 06:06] LABS: CRP High Sensitivity 1.29 mg/dL (<1.0)
[2023-09-05 08:09] LABS: Base Excess 3.1 mmol/L (-2.0-2.0)
[2023-09-05] MEDS: BUMETANIDE 2.5mg/10ml (0.25 mg/ml) INJ IV ONE (11:40)
[2023-09-05] MEDS: DOPamine 1600MCG/ML D5W 250 ML IV SCH (12:56)
[2023-09-05] MEDS: BUMETANIDE 2.5mg/10ml (0.25 mg/ml) INJ IV SCH (17:15)
[2023-09-06] VITALS (108 sets, daily range): BP systolic 84–164; BP diastolic 40–68; PULSE 59–74; RESP 10–19; TEMP 96–97.9; O2SAT 97–100
[2023-09-06 03:51] LABS: Basophils # (auto) 0 10 ^3/uL (0-0.2); Basophils % (auto) 0.1 % (0.0-2.0); Eosinophils # (auto) 0 10 ^3/uL (0-0.8); Monocytes # (auto) 0.5 10 ^3/uL (0-1.3); Neutrophils # (auto) 12.7 10 ^3/uL (1.6-8.6); White Blood Cell 14.2 10^3/uL (4.4-10.8)
[2023-09-06 03:53] LABS: Hemoglobin 8.9 g/dL (13.5-17.5); Lymphocytes % (auto) 7.2 % (10.0-50.0); Mean Corpuscular Hemoglobin 38.6 pg (28.0-32.0); Mean Corpuscular Hgb Conc. 34.2 g/dL (32.0-36.0); Monocytes % (auto) 3.8 % (0.0-12.0); Neutrophils % (auto) 88.9 % (37.0-80.0); Nucleated Red Blood Cells % 0.1 %
[2023-09-06 04:03] LABS: Red Cell Distribution Width 23.1 % (11.8-14.3)
[2023-09-06 04:07] LABS: Alanine Aminotransferase 13 U/L (7-40); Albumin 2.5 g/dL (3.2-4.8); Alkaline Phosphatase 124 U/L (46-116); Anion Gap 12 (5-15); Aspartate Aminotransferase 32 U/L (13-40); Blood Urea Nitrogen 38 mg/dL (9-23); Carbon Dioxide 26 mmol/L (20-30); Chloride 110 mmol/L (98-107); Glucose 178 mg/dL (74-106); Magnesium 2.1 mg/dL (1.6-2.6); Potassium 3.6 mmol/L (3.5-5.1); Sodium 148 mmol/L (136-145)
[2023-09-06 04:08] LABS: Bilirubin, Total 17.2 mg/dL (0.2-1.0); Total Protein 6.2 g/dL (5.7-8.2)
[2023-09-06 06:01] LABS: BUN/Creatinine Ratio 24.1 (10.0-20.0)
[2023-09-06 09:20] LABS: Base Excess 0.6 mmol/L (-2.0-2.0)
[2023-09-07] VITALS (106 sets, daily range): BP systolic 91–130; BP diastolic 41–59; PULSE 59–75; RESP 14–18; TEMP 96.6–98.2; O2SAT 95–100
[2023-09-07] MEDS: FREE WATER GT SCH (00:36)
[2023-09-07 04:00] LABS: Basophils # (auto) 0 10 ^3/uL (0-0.2); Eosinophils # (auto) 0 10 ^3/uL (0-0.8); Hematocrit 24.9 % (41.0-53.0); Hemoglobin 8.5 g/dL (13.5-17.5); Lymphocytes # (auto) 0.7 10 ^3/uL (0.4-5.4); Lymphocytes % (auto) 4.8 % (10.0-50.0); Mean Corpuscular Hgb Conc. 34.1 g/dL (32.0-36.0); Monocytes # (auto) 0.4 10 ^3/uL (0-1.3); Neutrophils % (auto) 92.3 % (37.0-80.0)
[2023-09-07 04:04] LABS: Mean Corpuscular Hemoglobin 39.1 pg (28.0-32.0); Mean Corpuscular Volume 114.8 fL (80.0-100.0); Monocytes % (auto) 2.9 % (0.0-12.0); Neutrophils # (auto) 14.2 10 ^3/uL (1.6-8.6); Red Blood Cells 2.17 10^6/uL (4.5-5.90); White Blood Cell 15.4 10^3/uL (4.4-10.8)
[2023-09-07 04:09] LABS: Alanine Aminotransferase 13 U/L (7-40); Albumin 2.5 g/dL (3.2-4.8); Alkaline Phosphatase 127 U/L (46-116); Anion Gap 8 (5-15); Blood Urea Nitrogen 44 mg/dL (9-23); Calcium 8.7 mg/dL (8.7-10.4); Carbon Dioxide 27 mmol/L (20-30); Chloride 111 mmol/L (98-107); Glucose 171 mg/dL (74-106); Magnesium 2.1 mg/dL (1.6-2.6); Potassium 3.5 mmol/L (3.5-5.1); Sodium 146 mmol/L (136-145)
[2023-09-07 04:10] LABS: Aspartate Aminotransferase 34 U/L (13-40)
[2023-09-07 04:11] LABS: Bilirubin, Total 16.8 mg/dL (0.2-1.0)
[2023-09-07 04:13] LABS: Red Cell Distribution Width 22.9 % (11.8-14.3)
[2023-09-07 07:55] LABS: Anisocytosis Slight; Macrocytosis Marked; Platelet Estimate Decreased
[2023-09-07 08:00] LABS: Base Excess 0.8 mmol/L (-2.0-2.0)
[2023-09-08] VITALS (107 sets, daily range): BP systolic 87–172; BP diastolic 31–64; PULSE 43–66; RESP 14–18; TEMP 97.1–98.5; O2SAT 94–100
[2023-09-08 03:30] LABS: Basophils # (auto) 0 10 ^3/uL (0-0.2); Eosinophils # (auto) 0 10 ^3/uL (0-0.8); Hemoglobin 7.3 g/dL (13.5-17.5); Lymphocytes # (auto) 0.8 10 ^3/uL (0.4-5.4); Lymphocytes % (auto) 5.3 % (10.0-50.0); Mean Corpuscular Hemoglobin 39.4 pg (28.0-32.0); Monocytes # (auto) 0.7 10 ^3/uL (0-1.3); Red Blood Cells 1.85 10^6/uL (4.5-5.90)
[2023-09-08 03:32] LABS: Basophils % (auto) 0.2 % (0.0-2.0); Hematocrit 21.5 % (41.0-53.0); Mean Corpuscular Hgb Conc. 33.9 g/dL (32.0-36.0); Mean Corpuscular Volume 116.1 fL (80.0-100.0); Monocytes % (auto) 4.7 % (0.0-12.0); Neutrophils # (auto) 13.4 10 ^3/uL (1.6-8.6); Neutrophils % (auto) 89.8 % (37.0-80.0); Nucleated Red Blood Cells % 0.1 %; White Blood Cell 14.9 10^3/uL (4.4-10.8)
[2023-09-08 03:40] LABS: Alanine Aminotransferase 10 U/L (7-40); Albumin 2.3 g/dL (3.2-4.8); Alkaline Phosphatase 117 U/L (46-116); Anion Gap 9 (5-15); Aspartate Aminotransferase 32 U/L (13-40); Bilirubin, Total 15.9 mg/dL (0.2-1.0); Calcium 8.2 mg/dL (8.7-10.4); Carbon Dioxide 26 mmol/L (20-30); Chloride 111 mmol/L (98-107); Glucose 169 mg/dL (74-106); Potassium 3.2 mmol/L (3.5-5.1); Sodium 146 mmol/L (136-145)
[2023-09-08 03:41] LABS: Red Cell Distribution Width 23.7 % (11.8-14.3); Total Protein 5.6 g/dL (5.7-8.2)
[2023-09-08 03:45] LABS: Blood Urea Nitrogen 57 mg/dL (9-23)
[2023-09-08 04:32] LABS: BUN/Creatinine Ratio 24.8 (10.0-20.0)
[2023-09-08 04:54] LABS: Anisocytosis Slight; Macrocytosis Marked; Platelet Estimate Decreased
[2023-09-08] MEDS ORDERED: POTASSIUM CHL 20MEQ/100ML 100 ML IV SCH (07:15)
[2023-09-08] MEDS: POTASSIUM CHL 20MEQ/100ML 100 ML IV ONE (07:47)
[2023-09-08] MEDS: POTASSIUM CHL 20MEQ/100ML 100 ML IV SCH (09:39)
[2023-09-08] MEDS: MIDODRINE HCL 10 MG TAB PO SCH (11:29)
[2023-09-08] MEDS: FREE WATER GT SCH (11:30)
[2023-09-09] VITALS (121 sets, daily range): BP systolic 102–147; BP diastolic 36–63; PULSE 44–78; RESP 10–21; TEMP 97.5–98.2; O2SAT 96–100
[2023-09-09 03:50] LABS: Basophils # (auto) 0 10 ^3/uL (0-0.2); Eosinophils # (auto) 0 10 ^3/uL (0-0.8); Neutrophils # (auto) 9.1 10 ^3/uL (1.6-8.6)
[2023-09-09 03:55] LABS: Hematocrit 19.1 % (41.0-53.0); Lymphocytes % (auto) 9.1 % (10.0-50.0); Mean Corpuscular Volume 117.6 fL (80.0-100.0); Monocytes % (auto) 9.1 % (0.0-12.0); Neutrophils % (auto) 81.8 % (37.0-80.0); Nucleated Red Blood Cells % 0.1 %; Red Blood Cells 1.63 10^6/uL (4.5-5.90); White Blood Cell 11.2 10^3/uL (4.4-10.8)
[2023-09-09 04:07] LABS: Albumin 2.2 g/dL (3.2-4.8); Alkaline Phosphatase 108 U/L (46-116); Anion Gap 6 (5-15); Aspartate Aminotransferase 29 U/L (13-40); Blood Urea Nitrogen 62 mg/dL (9-23); Calcium 8.2 mg/dL (8.7-10.4); Carbon Dioxide 26 mmol/L (20-30); Chloride 114 mmol/L (98-107); Glucose 182 mg/dL (74-106); Magnesium 2.3 mg/dL (1.6-2.6); Potassium 3.2 mmol/L (3.5-5.1); Sodium 146 mmol/L (136-145)
[2023-09-09 04:08] LABS: Bilirubin, Total 15.2 mg/dL (0.2-1.0); Total Protein 5.2 g/dL (5.7-8.2)
[2023-09-09 04:11] LABS: Alanine Aminotransferase < 9 U/L (7-40)
[2023-09-09 04:29] LABS: Red Cell Distribution Width 23.1 % (11.8-14.3)
[2023-09-09 04:30] LABS: Hemoglobin 6.5 g/dL (13.5-17.5)
[2023-09-09 05:16] LABS: Anisocytosis Slight; Macrocytosis Marked; Platelet Estimate Decreased
[2023-09-09] MEDS: POTASSIUM CHL 20MEQ/100ML 100 ML IV ONE (06:34)
[2023-09-09 07:14] LABS: Base Excess 0.6 mmol/L (-2.0-2.0)
[2023-09-09] MEDS: POTASSIUM CHL 20MEQ/100ML 100 ML IV SCH (08:11)
[2023-09-09] MEDS ORDERED: BUMETANIDE 2.5mg/10ml (0.25 mg/ml) INJ IV SCH (10:00)
[2023-09-09 10:49] LABS: Hematocrit 18.8 % (41.0-53.0)
[2023-09-09 10:57] LABS: Hemoglobin 6.5 g/dL (13.5-17.5)
[2023-09-09] MEDS: FREE WATER GT SCH (11:44)
[2023-09-09 17:20] LABS: Hematocrit 22.1 % (41.0-53.0); Hemoglobin 7.4 g/dL (13.5-17.5)
[2023-09-10] VITALS (108 sets, daily range): BP systolic 80–144; BP diastolic 36–106; PULSE 42–98; RESP 9–19; TEMP 97.9–98.6; O2SAT 94–100
[2023-09-10 04:25] LABS: Basophils # (auto) 0 10 ^3/uL (0-0.2); Basophils % (auto) 0.1 % (0.0-2.0); Eosinophils # (auto) 0.1 10 ^3/uL (0-0.8); Hemoglobin 8.2 g/dL (13.5-17.5); Lymphocytes # (auto) 1.1 10 ^3/uL (0.4-5.4); Monocytes # (auto) 1.1 10 ^3/uL (0-1.3); Nucleated Red Blood Cells % 0.1 %; White Blood Cell 11.5 10^3/uL (4.4-10.8)
[2023-09-10 04:28] LABS: Eosinophils % (auto) 0.6 % (0.0-7.0); Hematocrit 23.9 % (41.0-53.0); Mean Corpuscular Hemoglobin 38.7 pg (28.0-32.0); Mean Corpuscular Hgb Conc. 34.3 g/dL (32.0-36.0); Mean Corpuscular Volume 112.7 fL (80.0-100.0); Monocytes % (auto) 9.4 % (0.0-12.0); Neutrophils # (auto) 9.2 10 ^3/uL (1.6-8.6); Neutrophils % (auto) 79.9 % (37.0-80.0); Red Blood Cells 2.12 10^6/uL (4.5-5.90); Red Cell Distribution Width 27.1 % (11.8-14.3)
[2023-09-10 04:39] LABS: Albumin 2.3 g/dL (3.2-4.8); Alkaline Phosphatase 129 U/L (46-116); Anion Gap 7 (5-15); Aspartate Aminotransferase 30 U/L (13-40); Blood Urea Nitrogen 55 mg/dL (9-23); Calcium 8.5 mg/dL (8.7-10.4); Carbon Dioxide 25 mmol/L (20-30); Chloride 115 mmol/L (98-107); Glucose 185 mg/dL (74-106); Magnesium 2.4 mg/dL (1.6-2.6); Potassium 3.4 mmol/L (3.5-5.1); Sodium 147 mmol/L (136-145)
[2023-09-10 04:40] LABS: Alanine Aminotransferase < 9 U/L (7-40); Total Protein 5.6 g/dL (5.7-8.2)
[2023-09-10 04:55] LABS: BUN/Creatinine Ratio 32.5 (10.0-20.0)
[2023-09-10] MEDS: POTASSIUM EFFERVESENT TAB 25 MEQ GT ONE ×2 (07:01→15:16)
[2023-09-10] MEDS: ALBUTEROL SULF 2.5 MG/0.5ML(0.5%) NEB SOLN NEB PRN (07:06)
[2023-09-10] MEDS: IPRATROPIUM BROM 0.5 MG/2.5ML INH SOL NEB PRN (07:06)
[2023-09-10] MEDS: NOREPINEPHRINE 8 MG/250ML KIT 250 ML IV SCH (14:50)
[2023-09-10] MEDS: NOREPINEPHRINE 8 MG/250ML KIT 250 ML IV ONE (15:07)
[2023-09-10] MEDS: D5W 5% 1,000 ML IV SCH (15:11)
[2023-09-10] MEDS: MIDODRINE HCL 10 MG TAB PO SCH (18:33)
[2023-09-11] VITALS (111 sets, daily range): BP systolic 83–139; BP diastolic 30–88; PULSE 44–74; RESP 10–21; TEMP 97–98.4; O2SAT 97–100
[2023-09-11 04:03] LABS: Alkaline Phosphatase 118 U/L (46-116); Anion Gap 5 (5-15); Aspartate Aminotransferase 30 U/L (13-40); Calcium 8.6 mg/dL (8.7-10.4); Carbon Dioxide 27 mmol/L (20-30); Chloride 118 mmol/L (98-107); Glucose 148 mg/dL (74-106); Magnesium 2.2 mg/dL (1.6-2.6); Potassium 4.1 mmol/L (3.5-5.1); Sodium 150 mmol/L (136-145)
[2023-09-11 04:04] LABS: Albumin 2.3 g/dL (3.2-4.8); Bilirubin, Total 16.2 mg/dL (0.2-1.0); Total Protein 5.2 g/dL (5.7-8.2)
[2023-09-11 04:05] LABS: Basophils # (auto) 0 10 ^3/uL (0-0.2); Basophils % (auto) 0.1 % (0.0-2.0); Eosinophils # (auto) 0.3 10 ^3/uL (0-0.8); Hematocrit 22.2 % (41.0-53.0); Hemoglobin 7.4 g/dL (13.5-17.5); Lymphocytes # (auto) 1.5 10 ^3/uL (0.4-5.4); Lymphocytes % (auto) 10.9 % (10.0-50.0); Mean Corpuscular Hemoglobin 38.8 pg (28.0-32.0); Mean Corpuscular Hgb Conc. 33.5 g/dL (32.0-36.0); Mean Corpuscular Volume 115.8 fL (80.0-100.0); Monocytes # (auto) 1.3 10 ^3/uL (0-1.3); Monocytes % (auto) 9.6 % (0.0-12.0); Neutrophils # (auto) 10.4 10 ^3/uL (1.6-8.6); Neutrophils % (auto) 77.4 % (37.0-80.0); Nucleated Red Blood Cells % 0.2 %; Red Blood Cells 1.92 10^6/uL (4.5-5.90); White Blood Cell 13.5 10^3/uL (4.4-10.8)
[2023-09-11 04:06] LABS: Alanine Aminotransferase < 9 U/L (7-40); Blood Urea Nitrogen 45 mg/dL (9-23)
[2023-09-11 04:09] LABS: BUN/Creatinine Ratio 31.3 (10.0-20.0)
[2023-09-11 04:18] LABS: Platelet Estimate Decreased
[2023-09-11 04:19] LABS: Anisocytosis Moderate; Macrocytosis Marked
[2023-09-11 04:20] LABS: Ovalocytes FEW; Stomatocytes Many
[2023-09-11 05:43] LABS: Partial Thromboplastin Time 42.9 SEC (24.5-34.5)
[2023-09-11] MEDS: FREE WATER GT SCH (06:39)
[2023-09-11 06:41] LABS: Prothrombin Time 38.6 sec (9.3-11.8)
[2023-09-11 06:46] LABS: INR 4.04 (0.9-1.15)
[2023-09-11 07:11] LABS: Base Excess 0.5 mmol/L (-2.0-2.0)
[2023-09-11] MEDS: phytonadione 5 MG in SODIUM CHL 0.9% 50 ML IV ONE (09:32)
[2023-09-11 10:48] LABS: Urine Bacteria None Seen /hpf (None Seen)
[2023-09-11 11:04] LABS: Urine Blood 1+ /uL (Negative); Urine Clarity Clear (Clear); Urine Color Yellow (Yellow); Urine Protein, UAD TRACE (Negative); Urine Specific Gravity 1.019 (1.001-1.035); Urine Urobilinogen Normal (Negative); Urine WBC 3 /hpf (0 - 3); Urine pH 5.5 (5.0-9.0)
[2023-09-11] MEDS: LACTULOSE 20Gm/30ML SOLN PO SCH (14:43)
[2023-09-12] VITALS (112 sets, daily range): BP systolic 92–123; BP diastolic 42–54; PULSE 52–65; RESP 10–16; TEMP 97–98.6; O2SAT 95–100
[2023-09-12 04:01] LABS: Basophils # (auto) 0 10 ^3/uL (0-0.2); Basophils % (auto) 0.1 % (0.0-2.0); Eosinophils # (auto) 0.5 10 ^3/uL (0-0.8); Lymphocytes # (auto) 1.7 10 ^3/uL (0.4-5.4)
[2023-09-12 04:03] LABS: Eosinophils % (auto) 4.2 % (0.0-7.0); Hematocrit 20.6 % (41.0-53.0); Lymphocytes % (auto) 13.4 % (10.0-50.0); Mean Corpuscular Hemoglobin 39.5 pg (28.0-32.0); Mean Corpuscular Hgb Conc. 33.1 g/dL (32.0-36.0); Mean Corpuscular Volume 119.4 fL (80.0-100.0); Monocytes # (auto) 1.5 10 ^3/uL (0-1.3); Monocytes % (auto) 11.6 % (0.0-12.0); Neutrophils # (auto) 9.2 10 ^3/uL (1.6-8.6); Neutrophils % (auto) 70.7 % (37.0-80.0); Nucleated Red Blood Cells % 0.3 %; Red Blood Cells 1.72 10^6/uL (4.5-5.90)
[2023-09-12 04:11] LABS: Red Cell Distribution Width 26.7 % (11.8-14.3)
[2023-09-12 04:12] LABS: Hemoglobin 6.8 g/dL (13.5-17.5)
[2023-09-12 04:23] LABS: Alanine Aminotransferase < 9 U/L (7-40); Albumin 2.1 g/dL (3.2-4.8); Alkaline Phosphatase 111 U/L (46-116); Anion Gap 4 (5-15); Aspartate Aminotransferase 32 U/L (13-40); Blood Urea Nitrogen 36 mg/dL (9-23); Calcium 8.2 mg/dL (8.7-10.4); Carbon Dioxide 27 mmol/L (20-30); Chloride 118 mmol/L (98-107); Glucose 140 mg/dL (74-106); Potassium 3.9 mmol/L (3.5-5.1); Sodium 149 mmol/L (136-145)
[2023-09-12 04:24] LABS: Bilirubin, Total 17.3 mg/dL (0.2-1.0); Total Protein 4.9 g/dL (5.7-8.2)
[2023-09-12 05:19] LABS: BUN/Creatinine Ratio 35.6 (10.0-20.0)
[2023-09-12 05:20] LABS: INR 1.04 (0.9-1.15)
[2023-09-12 07:22] LABS: Base Excess 2.1 mmol/L (-2.0-2.0)
[2023-09-13] VITALS (109 sets, daily range): BP systolic 98–138; BP diastolic 44–80; PULSE 56–78; RESP 13–18; TEMP 97.7–98.8; O2SAT 98–100
[2023-09-13 04:12] LABS: Basophils # (auto) 0 10 ^3/uL (0-0.2); Eosinophils # (auto) 0.6 10 ^3/uL (0-0.8); Hemoglobin 7.6 g/dL (13.5-17.5); Mean Corpuscular Volume 109.3 fL (80.0-100.0); Monocytes # (auto) 1.3 10 ^3/uL (0-1.3); Nucleated Red Blood Cells % 0.1 %
[2023-09-13 04:13] LABS: Basophils % (auto) 0.2 % (0.0-2.0); Eosinophils % (auto) 4.3 % (0.0-7.0); Hematocrit 21.8 % (41.0-53.0); Lymphocytes # (auto) 1.7 10 ^3/uL (0.4-5.4); Lymphocytes % (auto) 12.4 % (10.0-50.0); Mean Corpuscular Hgb Conc. 34.7 g/dL (32.0-36.0); Monocytes % (auto) 9.8 % (0.0-12.0); Neutrophils # (auto) 9.8 10 ^3/uL (1.6-8.6); Neutrophils % (auto) 73.3 % (37.0-80.0); Red Blood Cells 1.99 10^6/uL (4.5-5.90); White Blood Cell 13.4 10^3/uL (4.4-10.8)
[2023-09-13 04:16] LABS: Red Cell Distribution Width 30.3 % (11.8-14.3)
[2023-09-13 04:36] LABS: Chloride 118 mmol/L (98-107); Potassium 3.7 mmol/L (3.5-5.1); Sodium 148 mmol/L (136-145)
[2023-09-13 04:37] LABS: Anion Gap 5 (5-15); Calcium 7.9 mg/dL (8.5-10.1); Carbon Dioxide 25 mmol/L (20-30)
[2023-09-13 04:42] LABS: Blood Urea Nitrogen 30 mg/dL (9-23); Glucose 137 mg/dL (74-106)
[2023-09-13 04:43] LABS: BUN/Creatinine Ratio 31.9 (10.0-20.0)
[2023-09-13 05:16] LABS: Anisocytosis Slight; Hypochromia Slight; Macrocytosis Slight; Platelet Estimate Decreased
[2023-09-14] VITALS (113 sets, daily range): BP systolic 92–126; BP diastolic 43–53; PULSE 46–69; RESP 13–18; TEMP 97.5–98.1; O2SAT 97–100
[2023-09-14 04:06] LABS: Basophils # (auto) 0 10 ^3/uL (0-0.2); Eosinophils # (auto) 0.5 10 ^3/uL (0-0.8); Hematocrit 19.7 % (41.0-53.0)
[2023-09-14 04:07] LABS: Basophils % (auto) 0.1 % (0.0-2.0); Calcium 7.9 mg/dL (8.5-10.1); Chloride 115 mmol/L (98-107); Eosinophils % (auto) 3.8 % (0.0-7.0); Lymphocytes # (auto) 1.2 10 ^3/uL (0.4-5.4); Lymphocytes % (auto) 8.7 % (10.0-50.0); Mean Corpuscular Hemoglobin 37.7 pg (28.0-32.0); Mean Corpuscular Hgb Conc. 34.6 g/dL (32.0-36.0); Monocytes # (auto) 1.1 10 ^3/uL (0-1.3); Monocytes % (auto) 8.2 % (0.0-12.0); Neutrophils % (auto) 79.2 % (37.0-80.0); Nucleated Red Blood Cells % 0.1 %; Potassium 3.8 mmol/L (3.5-5.1); Sodium 145 mmol/L (136-145); White Blood Cell 13.9 10^3/uL (4.4-10.8)
[2023-09-14 04:08] LABS: Anion Gap 5 (5-15); Carbon Dioxide 25 mmol/L (20-30)
[2023-09-14 04:13] LABS: BUN/Creatinine Ratio 33.7 (10.0-20.0); Blood Urea Nitrogen 33 mg/dL (9-23); Glucose 150 mg/dL (74-106)
[2023-09-14 04:28] LABS: Hemoglobin 6.8 g/dL (13.5-17.5); Red Cell Distribution Width 30.1 % (11.8-14.3)
[2023-09-14 04:54] LABS: Hypochromia Slight; Macrocytosis Slight; Platelet Estimate Decreased
[2023-09-14] MEDS: phytonadione 10 MG in SODIUM CHL 0.9% 50 ML IV ONE (14:56)
[2023-09-14] MEDS: methylPREDNISolone SOD SUCC 40 MG/ML VL IV SCH (21:39)
[2023-09-14] MEDS: URSODIOL 300 MG CAP PO SCH (21:40)
[2023-09-15] VITALS (108 sets, daily range): BP systolic 90–128; BP diastolic 44–56; PULSE 39–62; RESP 14–21; TEMP 97.5–98.3; O2SAT 97–100
[2023-09-15 04:17] LABS: Basophils # (auto) 0 10 ^3/uL (0-0.2); Basophils % (auto) 0.1 % (0.0-2.0); Eosinophils # (auto) 0.2 10 ^3/uL (0-0.8); Hemoglobin 8.9 g/dL (13.5-17.5); Lymphocytes # (auto) 0.3 10 ^3/uL (0.4-5.4); Monocytes # (auto) 0.2 10 ^3/uL (0-1.3); Neutrophils % (auto) 93.4 % (37.0-80.0)
[2023-09-15 04:18] LABS: Eosinophils % (auto) 1.9 % (0.0-7.0); Hematocrit 25.5 % (41.0-53.0); Lymphocytes % (auto) 2.5 % (10.0-50.0); Mean Corpuscular Hemoglobin 35.4 pg (28.0-32.0); Mean Corpuscular Volume 101.3 fL (80.0-100.0); Monocytes % (auto) 2.1 % (0.0-12.0); Neutrophils # (auto) 11.2 10 ^3/uL (1.6-8.6); Red Blood Cells 2.52 10^6/uL (4.5-5.90); Red Cell Distribution Width 28.6 % (11.8-14.3)
[2023-09-15 04:23] LABS: Anion Gap 7 (5-15); Carbon Dioxide 23 mmol/L (20-30); Chloride 113 mmol/L (98-107); Potassium 4.2 mmol/L (3.5-5.1); Sodium 143 mmol/L (136-145)
[2023-09-15 04:24] LABS: Calcium 7.9 mg/dL (8.5-10.1)
[2023-09-15 04:29] LABS: Blood Urea Nitrogen 33 mg/dL (9-23); Glucose 171 mg/dL (74-106)
[2023-09-15 04:34] LABS: BUN/Creatinine Ratio 36.3 (10.0-20.0)
[2023-09-15] MEDS: LACTULOSE 20Gm/30ML SOLN PO SCH (11:39)
[2023-09-15] MEDS: DOPamine 1600MCG/ML D5W 250 ML IV SCH (11:58)
[2023-09-15] MEDS ORDERED: LACTULOSE 20Gm/30ML SOLN PO SCH (12:00)
[2023-09-15 17:06] LABS: Base Excess -3.1 mmol/L (-2.0-2.0)
[2023-09-15 18:34] LABS: Base Excess -3.9 mmol/L (-2.0-2.0)
[2023-09-15 18:42] LABS: Band Neutrophils % (manual) 0; Basophils % (manual) 0 (0.0-2.0); Blast Cells 0; Eosinophils % (manual) 0 (0-7); Metamyelocytes % 0; Myelocytes % 0; Promyelocytes % 0; Reactive Lymphocytes 0
[2023-09-15 18:54] LABS: Basophils # (auto) 0 10 ^3/uL (0-0.2); Basophils % (auto) 0.1 % (0.0-2.0); Eosinophils # (auto) 0 10 ^3/uL (0-0.8); Hematocrit 27.5 % (41.0-53.0); Hemoglobin 9.5 g/dL (13.5-17.5); Lymphocytes # (auto) 0.5 10 ^3/uL (0.4-5.4); Lymphocytes % (auto) 4.5 % (10.0-50.0); Mean Corpuscular Hemoglobin 34.6 pg (28.0-32.0); Mean Corpuscular Hgb Conc. 34.5 g/dL (32.0-36.0); Mean Corpuscular Volume 100.4 fL (80.0-100.0); Monocytes # (auto) 0.2 10 ^3/uL (0-1.3); Neutrophils # (auto) 10.4 10 ^3/uL (1.6-8.6); Neutrophils % (auto) 93.4 % (37.0-80.0); Nucleated Red Blood Cells % 0.1 %; Red Blood Cells 2.74 10^6/uL (4.5-5.90); White Blood Cell 11.1 10^3/uL (4.4-10.8)
[2023-09-15 18:57] LABS: Red Cell Distribution Width 28.4 % (11.8-14.3)
[2023-09-15 19:11] LABS: INR 2.16 (0.9-1.15); Prothrombin Time 21.6 sec (9.3-11.8)
[2023-09-15 19:12] LABS: Bilirubin, Direct 7.3 mg/dL (<0.3); Phosphorus 2.7 mg/dL (2.4-5.1)
[2023-09-15 19:24] LABS: Anisocytosis Moderate; Lymphocytes % (manual) 6 (10.0-50.0); Macrocytosis Slight; Monocytes % (manual) 2 (0-12); Platelet Estimate Decreased
[2023-09-15 21:32] LABS: Urine Bacteria FEW /hpf (None Seen); Urine Blood TRACE /uL (Negative); Urine Clarity Turbid (Clear); Urine Color Dark-Orange (Yellow); Urine Hyaline Cast FEW /lpf (0 - 2); Urine Mucus FEW (None Seen); Urine Protein, UAD TRACE (Negative); Urine Specific Gravity 1.019 (1.001-1.035); Urine Urobilinogen Normal (Negative); Urine WBC 5 /hpf (0 - 3); Urine pH 5.5 (5.0-9.0)
[2023-09-16] VITALS (106 sets, daily range): BP systolic 93–164; BP diastolic 37–107; PULSE 41–72; RESP 13–20; TEMP 97.4–97.7; O2SAT 95–99
[2023-09-16 00:30] LABS: Urine Bacteria FEW /hpf (None Seen); Urine Blood TRACE /uL (Negative); Urine Clarity Clear (Clear); Urine Color Dark-Orange (Yellow); Urine Hyaline Cast FEW /lpf (0 - 2); Urine Mucus FEW (None Seen); Urine Protein, UAD TRACE (Negative); Urine Urobilinogen Normal (Negative); Urine WBC 4 /hpf (0 - 3); Urine pH 5.5 (5.0-9.0)
[2023-09-16 00:33] LABS: Base Excess -2.4 mmol/L (-2.0-2.0)
[2023-09-16 00:37] LABS: Band Neutrophils % (manual) 0; Basophils % (manual) 0 (0.0-2.0); Blast Cells 0; Eosinophils % (manual) 0 (0-7); Metamyelocytes % 0; Myelocytes % 0; Promyelocytes % 0; Reactive Lymphocytes 0
[2023-09-16 00:48] LABS: Hemoglobin 9.9 g/dL (13.5-17.5)
[2023-09-16 00:49] LABS: Hematocrit 28.8 % (41.0-53.0); Mean Corpuscular Hemoglobin 34.3 pg (28.0-32.0); Mean Corpuscular Hgb Conc. 34.2 g/dL (32.0-36.0); Mean Corpuscular Volume 100.3 fL (80.0-100.0); Red Blood Cells 2.87 10^6/uL (4.5-5.90); White Blood Cell 15.3 10^3/uL (4.4-10.8)
[2023-09-16 00:52] LABS: Red Cell Distribution Width 28.4 % (11.8-14.3)
[2023-09-16 00:55] LABS: Band Neutrophils % (manual) 0; Basophils % (manual) 0 (0.0-2.0); Blast Cells 0; Eosinophils % (manual) 0 (0-7); Metamyelocytes % 0; Myelocytes % 0; Promyelocytes % 0; Reactive Lymphocytes 0
[2023-09-16 01:01] LABS: INR 2.1 (0.9-1.15); Partial Thromboplastin Time 39.5 SEC (24.5-34.5); Prothrombin Time 21.1 sec (9.3-11.8)
[2023-09-16 01:13] LABS: Lymphocytes % (manual) 2 (10.0-50.0); Monocytes % (manual) 1 (0-12)
[2023-09-16 01:14] LABS: Platelet Estimate Decreased
[2023-09-16 01:15] LABS: Anisocytosis Moderate; Macrocytosis Slight
[2023-09-16 01:20] LABS: Lymphocytes % (manual) 2 (10.0-50.0); Monocytes % (manual) 1 (0-12); Platelet Estimate Decreased
[2023-09-16 01:21] LABS: Anisocytosis Moderate; Macrocytosis Slight
[2023-09-16 01:37] LABS: Alkaline Phosphatase 154 U/L (46-116); Amylase 67 U/L (30-118); Anion Gap 8 (5-15); Aspartate Aminotransferase 35 U/L (13-40); Blood Urea Nitrogen 41 mg/dL (9-23); Carbon Dioxide 21 mmol/L (20-30); Chloride 110 mmol/L (98-107); Glucose 218 mg/dL (74-106); Potassium 4.3 mmol/L (3.5-5.1); Sodium 139 mmol/L (136-145)
[2023-09-16 01:38] LABS: Albumin 2.3 g/dL (3.2-4.8); Bilirubin, Direct 7.7 mg/dL (<0.3); Bilirubin, Total 16.5 mg/dL (0.2-1.0); Phosphorus 2.9 mg/dL (2.4-5.1); Total Protein 5.9 g/dL (5.7-8.2)
[2023-09-16 01:51] LABS: Alanine Aminotransferase < 9 U/L (7-40)
[2023-09-16 06:24] LABS: Basophils % (manual) 0 (0.0-2.0); Blast Cells 0; Eosinophils % (manual) 0 (0-7); Metamyelocytes % 0; Myelocytes % 0; Promyelocytes % 0; Reactive Lymphocytes 0; Urine Bacteria None Seen /hpf (None Seen)
[2023-09-16 06:33] LABS: Base Excess -3.9 mmol/L (-2.0-2.0)
[2023-09-16 06:46] LABS: Urine Blood TRACE /uL (Negative); Urine Clarity Clear (Clear); Urine Color Dark-Yellow (Yellow); Urine Mucus FEW (None Seen); Urine Protein, UAD TRACE (Negative); Urine Urobilinogen Normal (Negative); Urine WBC 3 /hpf (0 - 3); Urine pH 5.5 (5.0-9.0)
[2023-09-16 06:47] LABS: INR 2.04 (0.9-1.15); Partial Thromboplastin Time 38.5 SEC (24.5-34.5); Prothrombin Time 20.5 sec (9.3-11.8)
[2023-09-16 06:51] LABS: Alkaline Phosphatase 159 U/L (46-116); Anion Gap 8 (5-15); Blood Urea Nitrogen 43 mg/dL (9-23); Calcium 8.1 mg/dL (8.5-10.1); Carbon Dioxide 21 mmol/L (20-30); Chloride 109 mmol/L (98-107); Glucose 250 mg/dL (74-106); Potassium 4.3 mmol/L (3.5-5.1); Sodium 138 mmol/L (136-145)
[2023-09-16 06:52] LABS: Albumin 2.4 g/dL (3.2-4.8); Amylase 69 U/L (30-118); Aspartate Aminotransferase 33 U/L (13-40); Bilirubin, Direct 7.6 mg/dL (<0.3); Bilirubin, Total 16.6 mg/dL (0.2-1.0); Phosphorus 3.2 mg/dL (2.4-5.1); Total Protein 6.1 g/dL (5.7-8.2)
[2023-09-16 06:54] LABS: Alanine Aminotransferase < 9 U/L (7-40)
[2023-09-16 07:00] LABS: Hematocrit 29.5 % (41.0-53.0); Red Blood Cells 2.95 10^6/uL (4.5-5.90); White Blood Cell 19.6 10^3/uL (4.4-10.8)
[2023-09-16 07:05] LABS: BUN/Creatinine Ratio 33.1 (10.0-20.0)
[2023-09-16 07:08] LABS: Magnesium 1.7 mg/dL (1.6-2.6)
[2023-09-16 07:09] LABS: Red Cell Distribution Width 28.3 % (11.8-14.3)
[2023-09-16 07:20] LABS: Magnesium 1.7 mg/dL (1.6-2.6)
[2023-09-16 07:47] LABS: Magnesium 1.7 mg/dL (1.6-2.6)
[2023-09-16 07:48] LABS: Lipase 34 U/L (12-53)
[2023-09-16] MEDS ORDERED: DEXTROSE (50%) 50ML SYRG IV PRN (08:00)
[2023-09-16 09:33] LABS: Band Neutrophils % (manual) 2; Lymphocytes % (manual) 3 (10.0-50.0); Monocytes % (manual) 3 (0-12)
[2023-09-16 09:34] LABS: Platelet Estimate Decreased
[2023-09-16] MEDS: InsuLIN REG 1unit/0.01ml Soln (100units/ml) SC SCH (09:34)
[2023-09-16] MEDS: ACCU-CHEK COMFORT CURVE STRIP VI SCH (09:35)
[2023-09-16 11:30] LABS: BUN/Creatinine Ratio 36.6 (10.0-20.0)
[2023-09-16 12:38] LABS: Base Excess -3.4 mmol/L (-2.0-2.0)
[2023-09-16] MEDS: phytonadione 2.5 MG in SODIUM CHL 0.9% 50 ML IV ONE (12:41)
[2023-09-16 14:45] LABS: Band Neutrophils % (manual) 0; Basophils % (manual) 0 (0.0-2.0); Blast Cells 0; Metamyelocytes % 0; Myelocytes % 0; Promyelocytes % 0; Reactive Lymphocytes 0
[2023-09-16 15:13] LABS: Basophils # (auto) 0 10 ^3/uL (0-0.2); Basophils % (auto) 0.1 % (0.0-2.0); Eosinophils # (auto) 0 10 ^3/uL (0-0.8); Eosinophils % (auto) 0.1 % (0.0-7.0); Hematocrit 26.6 % (41.0-53.0); Lymphocytes # (auto) 0.7 10 ^3/uL (0.4-5.4); Lymphocytes % (auto) 3.4 % (10.0-50.0); Mean Corpuscular Hemoglobin 34.1 pg (28.0-32.0); Mean Corpuscular Volume 100.3 fL (80.0-100.0); Monocytes # (auto) 0.5 10 ^3/uL (0-1.3); Monocytes % (auto) 2.8 % (0.0-12.0); Neutrophils # (auto) 18.3 10 ^3/uL (1.6-8.6); Neutrophils % (auto) 93.6 % (37.0-80.0); Red Blood Cells 2.66 10^6/uL (4.5-5.90); White Blood Cell 19.5 10^3/uL (4.4-10.8)
[2023-09-16 15:16] LABS: Bilirubin, Direct 6.9 mg/dL (<0.3); Bilirubin, Total 14.6 mg/dL (0.2-1.0); Phosphorus 3.5 mg/dL (2.4-5.1)
[2023-09-16 15:20] LABS: INR 2.21 (0.9-1.15); Prothrombin Time 22.1 sec (9.3-11.8)
[2023-09-16 15:26] LABS: Albumin 2.2 g/dL (3.2-4.8); Alkaline Phosphatase 147 U/L (46-116); Amylase 71 U/L (30-118); Anion Gap 7 (5-15); Aspartate Aminotransferase 30 U/L (13-40); BUN/Creatinine Ratio 33.3 (10.0-20.0); Carbon Dioxide 22 mmol/L (20-30); Chloride 109 mmol/L (98-107); Glucose 177 mg/dL (74-106); Magnesium 1.6 mg/dL (1.6-2.6); Potassium 4.2 mmol/L (3.5-5.1); Sodium 138 mmol/L (136-145); Total Protein 5.5 g/dL (5.7-8.2)
[2023-09-16 15:28] LABS: Alanine Aminotransferase < 9 U/L (7-40); Blood Urea Nitrogen 53 mg/dL (9-23)
[2023-09-16 16:33] LABS: Anisocytosis Moderate; Eosinophils % (manual) 2 (0-7); Lymphocytes % (manual) 3 (10.0-50.0); Macrocytosis Slight; Monocytes % (manual) 3 (0-12); Platelet Estimate Decreased
[2023-09-16 18:40] LABS: Blast Cells 0; Metamyelocytes % 0; Monocytes % (manual) 0 (0-12); Myelocytes % 0; Promyelocytes % 0; Reactive Lymphocytes 0
[2023-09-16 18:54] LABS: Basophils # (auto) 0 10 ^3/uL (0-0.2); Basophils % (auto) 0.1 % (0.0-2.0); Eosinophils # (auto) 0 10 ^3/uL (0-0.8); Hematocrit 26.1 % (41.0-53.0); Hemoglobin 8.8 g/dL (13.5-17.5); Lymphocytes # (auto) 0.8 10 ^3/uL (0.4-5.4); Mean Corpuscular Hgb Conc. 33.7 g/dL (32.0-36.0); Neutrophils # (auto) 18.4 10 ^3/uL (1.6-8.6); Red Blood Cells 2.57 10^6/uL (4.5-5.90)
[2023-09-16 18:56] LABS: Mean Corpuscular Hemoglobin 34.3 pg (28.0-32.0); Mean Corpuscular Volume 101.6 fL (80.0-100.0); Monocytes # (auto) 0.7 10 ^3/uL (0-1.3); Monocytes % (auto) 3.6 % (0.0-12.0); Neutrophils % (auto) 92.3 % (37.0-80.0)
[2023-09-16 18:59] LABS: Red Cell Distribution Width 28.1 % (11.8-14.3)
[2023-09-16 19:14] LABS: Base Excess -3.8 mmol/L (-2.0-2.0)
[2023-09-16 19:19] LABS: INR 2.19 (0.9-1.15); Partial Thromboplastin Time 41.2 SEC (24.5-34.5); Prothrombin Time 21.9 sec (9.3-11.8)
[2023-09-16 19:27] LABS: Albumin 2.2 g/dL (3.2-4.8); Aspartate Aminotransferase 30 U/L (13-40); Bilirubin, Direct 6.6 mg/dL (<0.3)
[2023-09-16 19:28] LABS: Bilirubin, Total 14.2 mg/dL (0.2-1.0); Phosphorus 3.6 mg/dL (2.4-5.1)
[2023-09-16 19:43] LABS: Alkaline Phosphatase 142 U/L (46-116); Amylase 69 U/L (30-118); Anion Gap 7 (5-15); BUN/Creatinine Ratio 33.3 (10.0-20.0); Blood Urea Nitrogen 54 mg/dL (9-23); Calcium 7.9 mg/dL (8.5-10.1); Carbon Dioxide 23 mmol/L (20-30); Chloride 109 mmol/L (98-107); Glucose 144 mg/dL (74-106); Magnesium 1.6 mg/dL (1.6-2.6); Potassium 4.2 mmol/L (3.5-5.1); Sodium 139 mmol/L (136-145); Total Protein 5.4 g/dL (5.7-8.2)
[2023-09-16 19:44] LABS: Alanine Aminotransferase < 9 U/L (7-40)
[2023-09-16 21:25] LABS: Lipase 30 U/L (12-53)
[2023-09-16 21:25] LABS: Lipase 29 U/L (12-53)
[2023-09-16 21:49] LABS: Lipase 30 U/L (12-53)
[2023-09-16 23:01] LABS: Platelet Estimate Decreased
[2023-09-17] VITALS (51 sets, daily range): BP systolic 83–138; BP diastolic 35–64; PULSE 52–167; RESP 10–30; TEMP 97.7–97.9; O2SAT 41–98
[2023-09-17 00:07] LABS: Base Excess -5.6 mmol/L (-2.0-2.0)
[2023-09-17 00:16] LABS: Band Neutrophils % (manual) 0; Basophils % (manual) 0 (0.0-2.0); Blast Cells 0; Eosinophils % (manual) 0 (0-7); Metamyelocytes % 0; Myelocytes % 0; Promyelocytes % 0; Reactive Lymphocytes 0
[2023-09-17 00:26] LABS: Basophils # (auto) 0 10 ^3/uL (0-0.2); Basophils % (auto) 0.1 % (0.0-2.0); Eosinophils # (auto) 0 10 ^3/uL (0-0.8); Hemoglobin 9.1 g/dL (13.5-17.5); Lymphocytes # (auto) 0.7 10 ^3/uL (0.4-5.4)
[2023-09-17 00:29] LABS: Hematocrit 26.1 % (41.0-53.0); Lymphocytes % (auto) 3.5 % (10.0-50.0); Mean Corpuscular Hemoglobin 35.2 pg (28.0-32.0); Mean Corpuscular Hgb Conc. 34.9 g/dL (32.0-36.0); Mean Corpuscular Volume 100.6 fL (80.0-100.0); Monocytes # (auto) 0.6 10 ^3/uL (0-1.3); Neutrophils # (auto) 18.8 10 ^3/uL (1.6-8.6); Neutrophils % (auto) 93.4 % (37.0-80.0); White Blood Cell 20.1 10^3/uL (4.4-10.8)
[2023-09-17 00:30] LABS: Urine Bacteria FEW /hpf (None Seen); Urine Blood TRACE /uL (Negative); Urine Clarity Clear (Clear); Urine Color Dark-Yellow (Yellow); Urine Hyaline Cast FEW /lpf (0 - 2); Urine Mucus FEW (None Seen); Urine Protein, UAD TRACE (Negative); Urine Specific Gravity 1.042 (1.001-1.035); Urine Urobilinogen Normal (Negative); Urine WBC 10 /hpf (0 - 3); Urine pH 5.5 (5.0-9.0)
[2023-09-17 00:38] LABS: INR 2.14 (0.9-1.15); Partial Thromboplastin Time 39.6 SEC (24.5-34.5); Prothrombin Time 21.4 sec (9.3-11.8)
[2023-09-17 00:43] LABS: Red Cell Distribution Width 27.8 % (11.8-14.3)
[2023-09-17 00:46] LABS: Albumin 2.3 g/dL (3.2-4.8); Alkaline Phosphatase 150 U/L (46-116); Amylase 101 U/L (30-118); Anion Gap 9 (5-15); Aspartate Aminotransferase 33 U/L (13-40); Bilirubin, Total 14.7 mg/dL (0.2-1.0); Calcium 8.1 mg/dL (8.7-10.4); Carbon Dioxide 20 mmol/L (20-30); Chloride 108 mmol/L (98-107); Glucose 155 mg/dL (74-106); Lipase 32 U/L (12-53); Magnesium 1.8 mg/dL (1.6-2.6); Phosphorus 3.5 mg/dL (2.4-5.1); Potassium 4.2 mmol/L (3.5-5.1); Sodium 137 mmol/L (136-145)
[2023-09-17 00:48] LABS: Total Protein 5.8 g/dL (5.7-8.2)
[2023-09-17 01:01] LABS: Band Neutrophils % (manual) 92; Basophils % (manual) 2 (0.0-2.0); Eosinophils % (manual) 3 (0-7); Lymphocytes % (manual) 3 (10.0-50.0)
[2023-09-17 01:04] LABS: COVID19 ANTIGEN SOFIA FIA NEGATIVE (NEGATIVE)
[2023-09-17 01:12] LABS: Alanine Aminotransferase < 9 U/L (7-40)
[2023-09-17 01:59] LABS: Lymphocytes % (manual) 3 (10.0-50.0); Monocytes % (manual) 1 (0-12); Platelet Estimate Decreased
[2023-09-17 02:05] LABS: Bilirubin, Direct 6.9 mg/dL (<0.3)
[2023-09-17 02:15] LABS: BUN/Creatinine Ratio 27.1 (10.0-20.0); Blood Urea Nitrogen 46 mg/dL (9-23)
[2023-09-17 06:18] LABS: Band Neutrophils % (manual) 0; Basophils % (manual) 0 (0.0-2.0); Blast Cells 0; Eosinophils % (manual) 0 (0-7); Lymphocytes % (manual) 0 (10.0-50.0); Metamyelocytes % 0; Monocytes % (manual) 0 (0-12); Myelocytes % 0; Promyelocytes % 0; Reactive Lymphocytes 0
[2023-09-17 06:30] LABS: Base Excess -5.7 mmol/L (-2.0-2.0)
[2023-09-17 06:30] LABS: Basophils # (auto) 0 10 ^3/uL (0-0.2); Basophils % (auto) 0.1 % (0.0-2.0); Eosinophils # (auto) 0 10 ^3/uL (0-0.8); Lymphocytes # (auto) 0.6 10 ^3/uL (0.4-5.4); Monocytes # (auto) 0.8 10 ^3/uL (0-1.3)
[2023-09-17 06:34] LABS: Eosinophils % (auto) 0.1 % (0.0-7.0); Hematocrit 23.7 % (41.0-53.0); Hemoglobin 8.2 g/dL (13.5-17.5); Lymphocytes % (auto) 3.1 % (10.0-50.0); Mean Corpuscular Hemoglobin 34.9 pg (28.0-32.0); Mean Corpuscular Hgb Conc. 34.6 g/dL (32.0-36.0); Mean Corpuscular Volume 100.8 fL (80.0-100.0); Monocytes % (auto) 3.9 % (0.0-12.0); Neutrophils # (auto) 19.3 10 ^3/uL (1.6-8.6); Neutrophils % (auto) 92.8 % (37.0-80.0); Red Blood Cells 2.35 10^6/uL (4.5-5.90); White Blood Cell 20.8 10^3/uL (4.4-10.8)
[2023-09-17 06:41] LABS: INR 2.25 (0.9-1.15); Prothrombin Time 22.5 sec (9.3-11.8)
[2023-09-17 06:42] LABS: Red Cell Distribution Width 27.9 % (11.8-14.3)
[2023-09-17 06:53] LABS: Albumin 2.2 g/dL (3.2-4.8); Alkaline Phosphatase 143 U/L (46-116); Amylase 151 U/L (30-118); Anion Gap 7 (5-15); Aspartate Aminotransferase 39 U/L (13-40); Blood Urea Nitrogen 49 mg/dL (9-23); Calcium 7.9 mg/dL (8.5-10.1); Carbon Dioxide 21 mmol/L (20-30); Chloride 109 mmol/L (98-107); Glucose 155 mg/dL (74-106); Magnesium 1.7 mg/dL (1.6-2.6); Potassium 4.3 mmol/L (3.5-5.1); Sodium 137 mmol/L (136-145)
[2023-09-17 06:54] LABS: Bilirubin, Direct 6.7 mg/dL (<0.3); Bilirubin, Total 13.9 mg/dL (0.2-1.0); Total Protein 5.4 g/dL (5.7-8.2)
[2023-09-17 07:07] LABS: Alanine Aminotransferase < 9 U/L (7-40)
[2023-09-17] MEDS ORDERED: LORazepam 2MG/ML-1ML VIAL IV PRN (07:15)
[2023-09-17] MEDS ORDERED: MORPHINE SULFATE INJ 2 MG/ml SYRG IV PRN (07:15)
[2023-09-17 07:54] LABS: BUN/Creatinine Ratio 26.2 (10.0-20.0)
[2023-09-17] MEDS ORDERED: MORPHINE SULFATE 4 MG/ML SYR/VIAL IV PRN (08:00)
[2023-09-17 08:26] LABS: Anisocytosis Moderate; Macrocytosis Slight; Platelet Estimate Decreased
[2023-09-17] MEDS: LORazepam 2MG/ML-1ML VIAL IV PRN (09:09)
[2023-09-17] MEDS: HEPARIN SODIUM (PORCINE) 5000 UNITS/ML 1ML VIAL IV ONE (09:09)
[2023-09-17] MEDS: MORPHINE SULFATE INJ 2 MG/ml SYRG IV PRN (09:14)
[2023-09-17 12:39] LABS: Lipase 30 U/L (12-53)
== END 2023-09-17 14:09 | DRG 870 ==
LOC: EDBD 08:29 → ER 08:29 → TELE 15:25 → ICU WEST 08-26 00:18 → TELE-EAST 09-17 12:41
PROVIDERS: ADMIT Internal Medicine; ATTEND Internal Medicine
PROC: 5A1955Z Respiratory Ventilation, Greater than 96 Consecutive Hours (ICD-10-PCS; principal; 2023-08-25)
PROC: 05HN33Z Insertion of Infusion Device into Left Internal Jugular Vein, Percutaneous Approach (ICD-10-PCS; 2023-08-25)
PROC: 0BH17EZ Insertion of Endotracheal Airway into Trachea, Via Natural or Artificial Opening (ICD-10-PCS; 2023-08-25)
PROC: 30233N1 Transfusion of Nonautologous Red Blood Cells into Peripheral Vein, Percutaneous Approach (ICD-10-PCS; 2023-08-25)
PROC: 30233K1 Transfusion of Nonautologous Frozen Plasma into Peripheral Vein, Percutaneous Approach (ICD-10-PCS; 2023-08-26)
PROC: 0DB98ZX Excision of Duodenum, Via Natural or Artificial Opening Endoscopic, Diagnostic (ICD-10-PCS; 2023-08-27)
PROC: 0DB68ZX Excision of Stomach, Via Natural or Artificial Opening Endoscopic, Diagnostic (ICD-10-PCS; 2023-08-27)
PROC: 0DB48ZX Excision of Esophagogastric Junction, Via Natural or Artificial Opening Endoscopic, Diagnostic (ICD-10-PCS; 2023-08-27)
DX: A41.9 Sepsis, unspecified organism (principal); J96.01 Acute respiratory failure with hypoxia; N17.0 Acute kidney failure with tubular necrosis; G92.8 Other toxic encephalopathy; R65.21 Severe sepsis with septic shock; J69.0 Pneumonitis due to inhalation of food and vomit; I21.4 Non-ST elevation (NSTEMI) myocardial infarction; K76.7 Hepatorenal syndrome; K29.71 Gastritis, unspecified, with bleeding; K29.81 Duodenitis with bleeding; K22.11 Ulcer of esophagus with bleeding; I85.11 Secondary esophageal varices with bleeding; E44.0 Moderate protein-calorie malnutrition; F10.239 Alcohol dependence with withdrawal, unspecified; I50.32 Chronic diastolic (congestive) heart failure; E87.0 Hyperosmolality and hypernatremia; E72.20 Disorder of urea cycle metabolism, unspecified; E87.3 Alkalosis; D68.4 Acquired coagulation factor deficiency; K80.20 Calculus of gallbladder without cholecystitis without obstruction; E88.09 Other disorders of plasma-protein metabolism, not elsewhere classified; E87.6 Hypokalemia; F10.229 Alcohol dependence with intoxication, unspecified; K70.11 Alcoholic hepatitis with ascites; K76.82 Hepatic encephalopathy; D50.9 Iron deficiency anemia, unspecified; D69.59 Other secondary thrombocytopenia; F12.20 Cannabis dependence, uncomplicated; E66.9 Obesity, unspecified; K70.31 Alcoholic cirrhosis of liver with ascites; K44.9 Diaphragmatic hernia without obstruction or gangrene; Y90.0 Blood alcohol level of less than 20 mg/100 ml; Z68.25 Body mass index [BMI] 25.0-25.9, adult
CPT/HCPCS: 36415; 36569; 36600; 43239; 70450; 71045; 71260; 74177; 76604; 76705; 76775; 80048; 80053; 80061; 80074; 80202; 80307; 80320; 81001; 82140; 82150; 82248; 82270; 82306; 82550; 82570; 82607; 82728; 82746; 82805; 82962; 82977; 83036; 83540; 83550; 83605; 83615; 83690; 83735; 83880; 83970; 84100; 84132; 84300; 84443; 84478; 84484; 85007; 85014; 85018; 85025; 85027; 85362; 85384; 85610; 85730; 86141; 86850; 86900; 86901; 86920; 86922; 87040; 87070; 87077; 87081; 87086; 87186; 87205; 87426; 93005; 93306; 94002; 94003; 94640; 94660; 96361; 96374; 96375; 96376; 99291; C9113; G0378; J1815; J2185; J2250; J2543; J3430; J3480; J7060; P9047